=== PATIENT | male | born 1945 | race Caucasian/White ===

== ENCOUNTER → 2017-06-15 | Day surgery (SDC) | payer MEDICARE, OTHER ==
--- NOTE | 2017-06-14 15:07 | Diagnostic Imaging Report ---
PROCEDURE:CHEST 2 VIEWS TECHNIQUE:PA and lateral chest INDICATION:Preoperative evaluation for foot surgery COMPARISON:None. FINDINGS: Lungs are clear and symmetrically inflated. No pleural effusions. Normal heart size; minimally tortuous thoracic aorta. Intact skeleton. CONCLUSION: No acute abnormality. Dictated by: Alexey Morales M.D. on 06/14/2017 at 15:08 Electronically approved by: Alexey Morales M.D. on 06/14/2017 at 15:08
[2017-06-14 15:08] LABS: BASOPHILS % 0.4 % (0.0-1.0); EOSINOPHILS # (AUTO) 0.3 (0.0-0.4); EOSINOPHILS % 3.5 % (0.0-6.0); HEMATOCRIT 35.9 % (38.2-49.6); HEMOGLOBIN 12.6 g/dL (14.0-18.0); LYMPHOCYTES # (AUTO) 1.7 (1.0-3.2); LYMPHOCYTES % 23.2 % (18.0-39.1); MEAN CORPUSCULAR HGB CONC 35.1 g/dL (31-35); MEAN CORPUSCULAR VOLUME 82.5 fL (81-99); MONOCYTES # (AUTO) 0.6 (0.2-0.8); MONOCYTES % 8.6 % (4.4-11.3); NEUTROPHILS # (AUTO) 4.6 (2.1-6.9); PLATELET COUNT 223 x10e3/uL (140-360); RED BLOOD COUNT 4.35 x10e6/uL (4.3-5.7); RED CELL DISTRIBUTION WIDTH 14.8 % (11.7-14.4)
[2017-06-14 15:26] LABS: ANION GAP 11.2 mmol/L (8-16); CALCIUM 8.9 mg/dL (8.4-10.2); CREATININE, SERUM 1.22 mg/dL (0.72-1.25); POTASSIUM 4.2 mmol/L (3.5-5.1)
[~2017-06-15] MED LIST: ASPIR 8181 MG PO; ASPIRIN81 MG; BACITRACIN 50,000 UNIT VIAL ONE; BUPIVACAINE HCL 0.5% INJ 30 ML VIAL INJ ONE; CALCIUM CITRAT1 EAC3 PO; CIPRO500 MG PO; CLINDAMYCIN HC150 MG; CLOPIDOGREL75 MG PO; COQ-10100 MG PO; DEXAMETHASONE SOD PHOS INJ 4 MG/ML VIAL ONE; DEXTROSE 5% 250ML 250 ML IV ONE; EPHEDRINE SULFATE INJ 50 MG/10 ML SYR ONE; FENTANYL CITRATE/PF 100MCG/2 ML INJ ONE; LIDOCAINE HCL 2% LOCAL INJ 5 ML SDV VIAL INJ ONE; LOSARTAN POTASS25 MG PO; METFORMIN HCL500 MG PO; MIDAZOLAM HCL 2 MG/2 ML VIAL ONE; NEOSTIGMINE 1 MG/ML 10ML VIAL ONE; NOVOLOG MI100 UNIT/1 SQ; ONDANSETRON HCL INJ 2 MG/ML VIAL ONE; PROPOFOL IV EMULSION 10 MG/ML 20 ML VIAL ONE; SEVOFLURANE INHAL SOLN 250 ML PEN BTL ONE; SIMVASTATIN20 MG PO; TRIAMCINOLONE A15 G1 TOP; VANCOMYCIN 1GM/NS 250 ML 250 ML ONE; VITAMIN A SQ; VITAMIN B COMP1 EACH PO
--- OUTSIDE RECORDS SUMMARY | 2017-06-15 09:37 | XMS REPORT | Clinical Summary ---
Author Author [facility] Address Unknown Phone Unavailable Care Team Providers Care Center Mgr Name Role Phone Rafael Allen MD PCP Allergies No Known Allergies Current Medications Prescription Sig. Disp. Refills Start End Date Status Date clopidogrel (PLAVIX) 75 Take 75 mg by mouth 01/18/20 Active mg tablet daily. 16 NOVOLOG MIX 70-30 FLEXPEN INJ 45 UNITS SQ QAM AND 4 12/28/19 Active 100 unit/mL (70-30) 48 UNITS QPM 16 insulin pen metFORMIN (GLUCOPHAGE) 500 mg 2 (two) times a 01/06/20 Active 500 MG tablet day with meals. 16 simvastatin (ZOCOR) 20 MG 20 mg nightly. 11/20/19 Active tablet 16 aspirin (ECOTRIN) 81 MG Take 81 mg by mouth Active enteric coated tablet daily. glipiZIDE (GLUCOTROL) 10 Take 10 mg by mouth Active MG tablet daily. nitroglycerin (NITROSTAT) Place 0.4 mg under the Active 0.4 MG SL tablet tongue every 5 (five) minutes as needed for chest pain. 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 2016 Acute pain of left knee 02/14/2016 Encounters Date Type Specialty Care Team Description 04/02/2017 Lab Lab Sam Segal MD Essential hypertension, benign (Primary Dx); Diabetes mellitus without complication; Disease of cardiovascular system 09/16/2016 Hospital Procedural Cardiology Rip Rowe MD Coronary artery disease Encounter involving [place] heart without angina pectoris, unspecified vessel or lesion type 09/16/2016 Procedure Pass Procedural Cardiology 09/16/2016 Surgery Procedural Cardiology Rip Rowe MD Cv left heart cath w lv gram cors [60187 (CPT )] 09/08/2016 Procedure Pass Procedural Cardiology after 06/14/2016 Family History Medical History Relation Name Comments Heart disease Father Arthritis Mother Relation Name Status Comments Father Mother Social History Tobacco Use Types Packs/Day Years Used Date Never Smoker Smokeless Tobacco: Never Used Alcohol Use Drinks/Week oz/Week Comments Yes 1 Cans of 0.6 social beer Sex Assigned at Date Recorded Not on file Last Filed Vital Signs Vital Sign Reading Time Taken Blood Pressure 168/80 09/16/2016 10:00 PM CDT Pulse 69 09/16/2016 10:00 PM CDT Temperature 36.3 C (97.3 F) 09/16/2016 3:15 PM CDT Respiratory Rate 22 09/16/2016 10:00 PM CDT Oxygen Saturation 98% 09/16/2016 10:00 PM CDT Inhaled Oxygen - - Concentration Weight 119 kg (263 lb 6 oz) 09/16/2016 1:51 PM CDT Height 180.3 cm (5' 11") 09/16/2016 1:51 PM CDT Body Mass Index 36.73 09/16/2016 1:51 PM CDT Plan of Treatment Health Maintenance Due Date Last Done Comments FOOT EXAM 11/16/1955 OPHTHALMOLOGY EXAM 11/16/1955 URINE MICROALBUMIN 11/16/1955 COLONOSCOPY 11/16/1995 ZOSTER VACCINE 2005 PNEUMOCOCCAL 2010 POLYSACCHARIDE VACCINE AGE 65 AND OVER PNEUMOCOCCAL-13 2010 INFLUENZA VACCINE 10/13/2017 Procedures Procedure Name Priority Date/Time Associated Diagnosis Comments CV LEFT HEART CATH LV Routine 09/16/2016 Coronary artery disease Results for this GRAM WITH CORS 2:57 PM CDT involving [place] heart procedure are in the without angina pectoris, results section. unspecified vessel or lesion type after 06/14/2016 Results * Cv labor training manager procedure (09/16/2016 2:57 PM) Component Value Ref Range Cath EF Estimated 45 % Specimen Performing Laboratory [facility] [address] [place] [address] Narrative Patient has occluded RCA with lesions in \\lad and LM.Will watch carefully with repeat cath in one year or if symptoms develop. * ECG 12 lead (09/16/2016 2:19 PM) Component Value Ref Range Ventricular rate 63 Atrial rate 63 NH interval 172 QRSD interval 114 QT interval 400 QTC interval 409 P axis 1 21 QRS axis 1 10 T wave axis -4 EKG impression Sinus rhythm with occasional premature ventricular complexes-Inferior infarct (cited on or before 10-MAR-2012)-Abnormal ECG-In automated comparison with ECG of 20-JUL-2013 08:33,-No significant change was found- Specimen Performing Laboratory [facility] MUSE [address] [place] [phone] * Partial thromboplastin time, activated (09/16/2016 2:12 PM) Component Value Ref Range PTT 27.0 23.0 - 36.0 sec Comment: PTT therapeutic range for unfractionated heparin is 61.0-112.0 seconds which corresponds to Anti-Xa 0.3-0.7 U/ml. Specimen Performing Laboratory Blood [facility] DEPARTMENT OF PATHOLOGY AND GENOMIC MEDICINE [address] [place] [phone] * Prothrombin time with INR (09/16/2016 2:12 PM) Component Value Ref Range Prothrombin time 14.0 12.0 - 15.0 sec INR 1.1 Comment: The International Normalized Ratio (INR) is a therapeutic monitoring tool for patients who are stable on oral anticoagulant therapy. An INR of 2.0-3.0 is suggested for deep vein thrombosis/pulmonary embolism. Specimen Performing Laboratory Blood [facility] DEPARTMENT OF PATHOLOGY AND GENOMIC MEDICINE [address] [place] [address] * CBC with platelet and differential (09/16/2016 2:12 PM) Component Value Ref Range WBC 8.00 4.50 - 11.00 k/uL RBC 4.10 (L) 4.40 - 6.00 m/uL HGB 11.8 (L) 14.0 - 18.0 g/dL HCT 35.3 (L) 41.0 - 51.0 % MCV 86.1 82.0 - 100.0 fL MCH 28.8 27.0 - 34.0 pg MCHC 33.4 31.0 - 37.0 g/dL RDW - SD 44.8 37.0 - 55.0 fL MPV 9.4 8.8 - 13.2 fL Platelet count 248 150 - 400 k/uL Nucleated RBC 0.00 /100 WBC Neutrophils 63.9 39.0 - 69.0 % Lymphocytes 21.1 (L) 25.0 - 45.0 % Monocytes 10.9 (H) 0.0 - 10.0 % Eosinophils 3.4 0.0 - 5.0 % Basophils 0.3 0.0 - 1.0 % Immature granulocytes 0.4Comment: "Immature granulocytes" 0.0 - 1.0 % (promyelocytes, myelocytes, metamyelocytes) Specimen Performing Laboratory Blood [facility] DEPARTMENT OF PATHOLOGY AND GENOMIC MEDICINE [address] [place], [place] [id number] * POC glucose (09/16/2016 1:43 PM) Component Value Ref Range POC glucose 156 (H) 65 - 99 mg/dL Comment: [facility] Notified RN Meter ID: [id number] Foundry Supervisor: Anthony Lin Specimen Performing Laboratory [facility] DEPARTMENT OF PATHOLOGY AND [place] [id number] * Estimated GFR (09/16/2016 1:27 PM) Component Value Ref Range GFR Non Af Amer 66 mL/min/1.73 m2 GFR Af Amer 80 mL/min/1.73 m2 Comment: Chronic kidney disease: <60 mL/min/1.73m2 Kidney failure: <15 mL/min/1.73m2 The estimated GFR is calculated from the IDMS-traceable Modification of Diet in Renal Disease Equation. The accuracy of the calculation is poor when the creatinine is normal. Calculated values >90 mL/min/1.73m2 are not reported. This equation has not been validated in children (<18 years), women, the elderly (>70 years), or ethnic groups other than Caucasians and Americans. Specimen Performing Laboratory Plasma specimen [facility] DEPARTMENT OF PATHOLOGY AND GENOMIC MEDICINE [address] [place] [phone] * Comprehensive metabolic panel (09/16/2016 1:27 PM) Component Value Ref Range Sodium 137 135 - 148 mEq/L Potassium 4.4 3.5 - 5.0 mEq/L Chloride 100 98 - 112 mEq/L CO2 25 24 - 31 mEq/L Anion gap 12 7 - 15 mEq/L Comment: Starting from June , anion gap calculation no longer incorporates potassium. Please note the change. BUN 19 8 - 23 mg/dL Creatinine 1.1 0.7 - 1.2 mg/dL Glucose 155 (H) 65 - 99 mg/dL Calcium 9.1 8.8 - 10.2 mg/dL Protein 7.2 6.3 - 8.3 g/dL Comment: 4.6-7.0 g/dL 1 week 4.4-7.6 g/dL 7 months-1year 5.1-7.3 g/dL 1-2 years 5.6-7.5 g/dL >3 years 6.0-8.0 g/dL 18-150 6.3-8.3 g/dL Albumin 3.5 3.5 - 5.0 g/dL A/G ratio 0.9 0.7 - 3.8 Alkaline phosphatase 59 40 - 129 U/L AST 15 10 - 50 U/L ALT 16 5 - 50 U/L Total bilirubin 0.3 0.0 - 1.2 mg/dL Specimen Performing Laboratory Plasma specimen [facility] DEPARTMENT OF PATHOLOGY AND GENOMIC MEDICINE [address] [place] [phone] after 06/14/2016 Insurance Payer Benefit Subscriber ID Type Phone Address Plan / Group AETNA AETNA xxxxxxxxxx HMO HMO,POS,EP O, MC/EC MEDICARE MEDICARE xxxxxxxxxx Medicare [place], [place] PART A AND B
--- OUTSIDE RECORDS SUMMARY | 2017-06-15 09:37 | XMS REPORT ---
Author [facility] Address Unknown Phone Unavailable Care Team Providers Care Merchandise Flow Team Member Name Role Phone SHEELA VELAZQUEZ Unavailable Unavailable Problems This patient has no known problems. Allergies, Adverse Reactions, Alerts This patient has no known allergies or adverse reactions. Medications This patient has no known medications. Results Test Description Test Time Test Comments Text Results Atomic Results Result Comments CHEST 2 VIEWS [place] [address] Patient Name: CAR QUINTANA MR #: [id number] : 1945 Age/Sex: 71/M Req #: [id number] Adm Physician: Ordered by: SHEELA VELAZQUEZ DP Report #: [id number] Location: OR Room/Bed: Procedure: [id number] DX/CHEST 2 VIEWS Exam Date: 06/14/17 Exam Time : 1445 REPORT STATUS: Signed PROCEDURE: CHEST 2 VIEWS TECHNIQUE: PA and lateral chest INDICATION: Preoperative evaluation for foot surgery COMPARISON: None. FINDINGS: Lungs are clear and symmetrically inflated. No pleural effusions. Normal heart size; minimally tortuous thoracic aorta. Intact skeleton. CONCLUSION: No acute abnormality. Dictated by: Joyce Morales M.D. on 06/14/2017 at 15:08 Electronically approved by: Joyce Morales M.D. on 06/14/2017 at 15: 08 Dictated By: JOYCE MORALES MD 1508 Transcribed By: JOSH on 06/14/17 1508 COPY TO: SHEELA VELAZQUEZ DPM PICC INSERT W OR W/O PORT [place] [address] Patient Name: CAR QUINTANA MR #: [id number] : 1945 Age/Sex: 71/M Req #: [id number] Adm Physician: Ordered by: SHEELA VELAZQUEZ DPM Report #: [id number] Location: DX Room/Bed: Procedure: [id number] IR/PICC INSERT W OR W/O PORT Exam Date: 01/15/17 Exam Time: 1300 REPORT STATUS: Signed Procedure: Peripherally inserted central venous catheter placement. Indication: Need for long-term central venous access for antibiotics. Comparison: None. Discussion: The risks and benefits of the procedure were discussed with the patient. Questions were answered. An informed consent was obtained. The patient was placed supine on the angiographic table. A focused sonographic evaluation of the right upper extremity demonstrated a patent and compressible right brachial vein. The right upper extremity was prepped and draped in the usual sterile fashion. Utilizing ultrasound guidance, a 21-gauge needle was inserted into the right brachial vein. A 0.018 inch wire was advanced centrally under fluoroscopic guidance. An access sheath was placed over the wire to secure the access. The wire was advanced into the inferior vena cava for stability. A double lumen peripherally inserted central venous catheter was advanced over the wire. The catheter could not be advanced past the brachiocephalic vein. The wire was removed. The catheter tip was positioned within the right brachiocephalic vein. The ports demonstrated proper function with aspiration and flush. The lumens were flushed with sterile saline. The catheter was secured to the skin with 3-0 Ethilon suture. A sterile dressing was applied. There were no complications and the patient tolerated the procedure well. The patient was transferred to the PACU in stable unchanged condition for further monitoring. Impression: Successful placement of right upper extremity peripherally inserted central venous catheter utilizing ultrasound and fluoroscopic guidance. 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 Signed by: Dr. Steph Clifford M.D. on 01/16/2017 3:06 PM Dictated By: STEPH CLIFFORD MD 1506 Transcribed By: IRASEMA on 01/16/17 1506 COPY TO: SHEELA VELAZQUEZ DPM CHEST XRAY LINE PLACEMENT [place] [address] Patient Name: CAR QUINTANA MR #: [id number] : 1945 Age/Sex: 71/M Req #: [id number] Adm Physician: Ordered by: SHEELA VELAZQUEZ DPM Report #: [id number] Location: DX Room/Bed: Procedure: [id number] DX/CHEST XRAY LINE PLACEMENT Exam Date: 01/15/17 Exam Time: 1405 REPORT STATUS: Signed PROCEDURE: A single AP view of the chest. COMPARISON: Chest 2 views 01/06/2017. INDICATIONS: PICC LINE PLACEMENT FINDINGS: Lines/tubes: Right peripherally inserted central venous catheter with the tip coiled within the right axillary vein/subclavian vein. Lungs: The lungs are well inflated and clear. There is no evidence of pneumonia or pulmonary edema. Pleura : There is no pleural effusion or pneumothorax. Heart and mediastinum: The heart and the mediastinum are unremarkable. Bones: No acute bony abnormality. IMPRESSION: PICC positioned as above. Dictated by: Steph Clifford M.D. on 01/15/2017 at 14:32 Electronically approved by : Steph Clifford M.D. on 01/15/2017 at 14:32 Dictated By: STEPH CLIFFORD MD 143 Transcribed By: JOSH on 01/15/17 143 COPY TO: SHEELA VELAZQUEZ DPM CHEST 2 VIEWS [place] [address] Patient Name: CAR QUINTANA MR #: [id number] : 1945 Age/Sex: 71/M Req #: [id number] Adm Physician: Ordered by: HSEELA VELAZQUEZ DPM Report #: [id number] Location: OR Room/Bed: Procedure: [id number] DX/CHEST 2 VIEWS Exam Date: 01/06/17 Exam Time: 1410 REPORT STATUS: Signed PROCEDURE: Frontal and lateral views of the chest. COMPARISON: None. INDICATIONS: PREOPERATIVE CHEST XRAY FOR FOOT SURGERY FINDINGS: Lines/tubes: None. Lungs: The lungs are well inflated and clear. There is no evidence of pneumonia or pulmonary edema. Pleura: There is no pleural effusion or pneumothorax. Heart and mediastinum: The cardiac silhouette is mildly enlarged. Bones: No acute bony abnormality. Mild spondylosis of the lower thoracic spine. Mild anterior wedging of the T11 vertebral body. IMPRESSION: 1. No acute cardiopulmonary disease. Luis Angel Mejia M.D. Dictated by: Luis Angel Mejia M.D. on 01/06/2017 at 16:21 Electronically approved by: Luis Angel Mejia M.D. on 01/06/2017 at 16: 21 Dictated By: ALEXANDRIA MEJIA MD, MD 20 Transcribed By: JOSH on 01/06/171620 COPY TO: SHEELA VELAZQUEZ DPM
--- NOTE | 2017-06-15 14:52 | Operative Report ---
DATE OF PROCEDURE: June 15, 2017 CARPENTER INSPECTOR: None. PREOPERATIVE DIAGNOSIS: Ulcer, left 2nd, grade II. POSTOPERATIVE DIAGNOSES 1. Ulcer, left 2nd, grade II. 2. Proximal interphalangeal joint contracture. PROCEDURES 1. Proximal interphalangeal joint fusion, left 2nd. 2. Debridement of the ulcer to bone with closure. PATHOLOGY: Deep culture and sensitivities of the wound at end of the left 2nd. COMPLICATIONS: None. CONDITION: Stable. PROCEDURE IN DETAIL: Under mild sedation, patient was brought to the operating room and placed on the operating table in the supine position. Following IV sedation, anesthesia was obtained with general anesthetic. At this point, the foot scrubbed, prepped and draped in the usual aseptic manner. The tourniquet was inflated to 250 mmHg and the leg was lowered to the table. Attention was then directed to the left 2nd digit where an ulcer at the distal aspect of the left foot. At this point, it was noted that the contracture was all coming from the PIP joint and the extensor tendon. The extensor tendon was then tenotomized. The contracture still continued, so at this point, the PIPJ fusion was performed with an oscillating saw after an incision was made overlying the PIPJ. The incision was deepened down to the level of the tendon. The tendon was then tenotomized. The joint was prepared for arthrodesis. A K-wire was used from the proximal aspect of the DIPJ into the proximal intraphalangeal joint. There was noted to be adequate compression clinically and with the use of intraop fluoroscopy. Debridement of ulcer to bone with primary closure: Attention was then directed to the distal aspect of the left 2nd digit where utilizing sharp dissection, excisional debridement of the nonviable tissue down to and include the bone was performed. All nonviable tissue was removed. The area was then flushed with copious amount of normal sterile saline solution with copious irrigation with bacitracin. At this point, primary closure of the wound was performed. The wound was rotated in order to be able to close the digit and was closed 4-0 nylon. Clean dressing was applied consisting of Adaptic, ointment, 4 x 4's, and Kerlix to the PIPJ fusion and to the ulcer area adaptic and Betadine wet-to-dry in order to keep the bacterial load down. The 4 x 4's, Kerlix, Webril, and posterior splint was applied to the foot utilizing an Ryley bandage. The tourniquet was deflated. There was noted to be hyperemic response to all the digits. Patient tolerated the procedure and anesthesia well without complications and was transported to recovery room with vital signs stable and vascular status intact to both feet. Patient will be discharged home when she meets criteria. He was given instructions to be strictly nonweightbearing, to elevate the foot while at rest, to follow up with me in the office, and to call the office if any questions, concerns, or any problems arise. Job#: [id number] VAS
== END | disposition home or self-care (01) ==
LOC: OR 09:34
PROVIDERS: ATTEND Podiatrist Foot & Ankle Surgery
DX: L97.524 Non-pressure chronic ulcer of other part of left foot with necrosis of bone (principal); M24.575 Contracture, left foot; E11.42 Type 2 diabetes mellitus with diabetic polyneuropathy; I25.10 Atherosclerotic heart disease of native coronary artery without angina pectoris; E11.22 Type 2 diabetes mellitus with diabetic chronic kidney disease; I12.9 Hypertensive chronic kidney disease with stage 1 through stage 4 chronic kidney disease, or unspecified chronic kidney disease; N18.9 Chronic kidney disease, unspecified; Z01.810 Encounter for preprocedural cardiovascular examination; Z01.812 Encounter for preprocedural laboratory examination; Z01.818 Encounter for other preprocedural examination; Z95.5 Presence of coronary angioplasty implant and graft
CPT/HCPCS: 11044; 28899; 36415 ×2; 71046; 76000; 80048; 82948; 85025; 87071; 87075; 87186; 87205; 93005; J1100; J2001; J2250; J2405; J2710; J3370

== ENCOUNTER 2019-09-12 15:39 | Inpatient (IN) | payer MEDICARE, OTHER ==
[~2019-09-12] VITALS: Ht 177.8 cm; Wt 108.9 kg
[~2019-09-12 15:39] MED LIST changes: -BACITRACIN 50,000 UNIT VIAL ONE; -BUPIVACAINE HCL 0.5% INJ 30 ML VIAL INJ ONE; -DEXAMETHASONE SOD PHOS INJ 4 MG/ML VIAL ONE; -DEXTROSE 5% 250ML 250 ML IV ONE; -EPHEDRINE SULFATE INJ 50 MG/10 ML SYR ONE; -FENTANYL CITRATE/PF 100MCG/2 ML INJ ONE; -LIDOCAINE HCL 2% LOCAL INJ 5 ML SDV VIAL INJ ONE; -MIDAZOLAM HCL 2 MG/2 ML VIAL ONE; -NEOSTIGMINE 1 MG/ML 10ML VIAL ONE; -ONDANSETRON HCL INJ 2 MG/ML VIAL ONE; -PROPOFOL IV EMULSION 10 MG/ML 20 ML VIAL ONE; -SEVOFLURANE INHAL SOLN 250 ML PEN BTL ONE; -VANCOMYCIN 1GM/NS 250 ML 250 ML ONE
--- NOTE | 2019-09-12 16:18 | Emergency Department Note ---
History of Present Illnes History of Present Illness Chief Complaint: General Medicine Complaints History of Present Illness This is a 73 year old male with wound of left big toe of weeks duration. Sent in by dry finisher for evaluation of osteomyelitis . Historian: Patient Arrival Mode: Car Onset (how long ago): week(s) Location: left hallux Radiation: Reports extremity Severity: moderate Onset quality: gradual Duration (how long): week(s) Timing of current episode: constant Progression: worsening Context: Denies recent illness, Denies recent surgery, Denies recent immob ilization, Denies recent travel, Denies trauma/injury, Denies new medications, Denies hx of DVT/PE, Denies non-compliance w/ medications, Denies other Relieving factors: none Exacerbating factors: none Associated symptoms: Reports fever/chills Previous service: one or more referrals, re-evaluation Past Medical/Family History Physician Review I have reviewed the patient's past medical and family history. Any updates have been documented here. Past Medical History Recent Fever: No Clinical Suspicion of Infectio: No New/Unexplained Change in Ment: No Past Medical History: Hypertension, Diabetes, Hyperlipedemia Social History Smoking Cessation: Never Smoker Alcohol Use: None Any Illegal Drug Use: No Family History Family history of heart diseas: No Other Last Tetanus: UTD Review of Systems Review of Systems Constitutional: Reports fever EENTM: Reports no symptoms Cardiovascular: Reports no symptoms Respiratory: Reports no symptoms Gastrointestinal: Reports no symptoms Genitourinary: Reports no symptoms Musculoskeletal: Reports no symptoms Integumentary: Reports poor turgor, Reports other (wound) Neurological: Reports no symptoms Psychological: Reports no symptoms Endocrine: Reports no symptoms Hematological/Lymphatic: Reports no symptoms Physical Exam Related Data Allergies: Coded Allergies: No Known Allergies (Unverified , 01/11/17) Triage Vital Signs Vital Signs Date Time Temp Pulse Resp B/P (MAP) Pulse Ox O2 Delivery O2 Flow Rate FiO2 09/12/19 16:04 100.6 98 20 131/77 96 Vital signs reviewed: Yes Physical Exam CONSTITUTIONAL Constitutional: Present well-developed, Present well-nourished HENT HENT: Present normocephalic, Present atraumatic, Present oropharynx clear/moist, Present nose normal HENT L/R: Present left ext ear normal, Present right ext ear normal EYES Eyes: Reports PERRL, Reports conjunctivae normal NECK Neck: Present ROM normal PULMONARY Pulmonary: Present effort normal, Present breath sounds normal CARDIOVASCULAR Cardiovascular: Present regular rhythm, Present heart sounds normal, Present capillary refill normal, Present normal rate GASTROINTESTINAL Abdominal: Present soft, Present nontender, Present bowel sounds normal GENITOURINARY Genitourinary: Present exam deferred SKIN Skin: Present other MUSCULOSKELETAL Musculoskeletal: Present ROM normal NEUROLOGICAL Neurological: Present alert, Present oriented x 3, Present no gross motor or sensory deficits PSYCHOLOGICAL Psychological: Present mood/affect normal, Present judgement normal Results Laboratory Lab results reviewed: Yes Laboratory comments Laboratory Tests Test 09/12/19 20:13 09/12/19 17:22 09/12/19 16:07 White Blood Count 12.95 x10e3/uL (4.8-10.8) Red Blood Count 4.02 x10e6/uL (4.3-5.7) Hemoglobin 11.7 g/dL (14.0-18.0) Hematocrit 34.4 % (38.2-49.6) Mean Corpuscular Volume 85.6 fL (81-99) Mean Corpuscular Hemoglobin 29.1 pg (28-32) Mean Corpuscular Hemoglobin Concent 34.0 g/dL (31-35) Red Cell Distribution Width 13.3 % (11.7-14.4) Platelet Count 320 x10e3/uL (140-360) Neutrophils (%) (Auto) 87.6 % (38.7-80.0) Lymphocytes (%) (Auto) 5.6 % (18.0-39.1) Monocytes (%) (Auto) 5.9 % (4.4-11.3) Eosinophils (%) (Auto) 0.2 % (0.0-6.0) Basophils (%) (Auto) 0.2 % (0.0-1.0) Neutrophils # (Auto) 11.3 (2.1-6.9) Lymphocytes # (Auto) 0.7 (1.0-3.2) Monocytes # (Auto) 0.8 (0.2-0.8) Eosinophils # (Auto) 0.0 (0.0-0.4) Basophils # (Auto) 0.0 (0.0-0.1) Absolute Immature Granulocyte (auto 0.07 x10e3/uL (0-0.1) Sodium Level 124 mmol/L (136-145) Potassium Level 4.5 mmol/L (3.5-5.1) Chloride Level 94 mmol/L (98-107) Carbon Dioxide Level 20 mmol/L (22-29) Anion Gap 14.5 mmol/L (8-16) Blood Urea Nitrogen 20 mg/dL (7-26) Creatinine 1.58 mg/dL (0.72-1.25) Estimat Glomerular Filtration Rate 43 ML/MIN (60-) BUN/Creatinine Ratio 13 (6-25) Glucose Level 192 mg/dL (74-118) Calcium Level 9.2 mg/dL (8.4-10.2) Total Bilirubin 0.4 mg/dL (0.2-1.2) Aspartate Amino Transf (AST/SGOT) 19 IU/L (5-34) Alanine Aminotransferase (ALT/SGPT) 22 IU/L (0-55) Alkaline Phosphatase 88 IU/L (40-150) Total Protein 7.9 g/dL (6.5-8.1) Albumin 2.9 g/dL (3.5-5.0) Globulin 5.0 g/dL (2.3-3.5) Albumin/Globulin Ratio 0.6 (0.8-2.0) Imaging Imaging results reviewed: Yes Impressions [place] [id number] Patient Name: CAR QUINTANA MR #: [id number] : 1945 Age/Sex: 73/M Req #: [id number] Adm Physician: EDGAR FULLER MD Ordered by: LD LOMBARDI DO Report #: [id number] Location: [facility] Room/Bed: [place] [address] Procedure: [id number] DX/FOOT LEFT COMPLETE Exam Date: 09/12/19 Exam Time: 1620 REPORT STATUS: Signed EXAM: FOOT LEFT COMPLETE DATE: 09/12/2019 4:27 PM INDICATION: Infected toe COMPARISON: None FINDINGS/IMPRESSION: There is hypodensity within the soft tissues about the first digit suggestive of soft tissue gas. Additionally, there is subtle loss of cortical distinction of the underlying distal phalanx of the first digit which can be seen in the setting of osteomyelitis. Further evaluation could be performed with dedicated MRI if clinically indicated. The remaining osseous structures demonstrate no evidence for acute fracture or dislocation. Scattered degenerative changes are noted. No radiopaque foreign body is appreciated. Signed by: Dr. Bret Watkins MD on 09/12/2019 5:06 PM Dictated By: BRET WATKINS MD 05 Transcribed By: IRASEMA on 09/12/191705 COPY TO: LD LOMBARDI DO~ Assessment & Plan Medical Decision Making MDM Diff Dx : cellulitis, diabetic foot ulcer, gangrene, osteomyelitis Assessment & Plan Final Impression: (1) Diabetic foot ulcer with osteomyelitis (2) Hyponatremia (3) Renal insufficiency Depart Disposition: REQUEST WITHDRAWN FOR MSE Last Vital Signs Date Time Temp Pulse Resp B/P (MAP) Pulse Ox O2 Delivery O2 Flow Rate FiO2 09/12/19 16:04 100.6 98 20 131/77 96 Home Meds Active Scripts Doxycycline Hyclate (DOXYCYCLINE HYCLATE) 100 Mg Capsule, 100 MG PO BID, #42 Prov:SHAIAbdiMICAELA [employer] INSTALLER 09/16/19 Reported Medications Aspirin (ASPIRIN) 81 Mg Tab.chew 06/15/17 Triamcinolone Acet (TRIAMCINOLONE ACETONIDE) 15 Gm Cr, TOP DAILY 06/14/17 Insuln Asp Prt/Insulin Aspart (NOVOLOG MIX 70-30 FLEXPEN SYRN) 100 Unit/1 Ml Insuln.pen, 48 UNITS SQ HS 06/14/17 Losartan Potassium (LOSARTAN POTASSIUM) 25 Mg Tablet, 50 TAB PO HS 01/11/17 Insuln Asp Prt/Insulin Aspart (NOVOLOG MIX 70-30 FLEXPEN SYRN) 100 Unit/1 Ml Insuln.pen, 45 UNITS SQ DAILY 01/11/17 Simvastatin (SIMVASTATIN) 20 Mg Tablet, 20 MG PO 2100, EA 01/11/17 Metformin Hcl (METFORMIN HCL) 500 Mg Tablet, 500 MG PO BID, #60 TAB 01/11/17 LD LOMBARDI DO Sep 12, 2019 16:18
[2019-09-12] MEDS ORDERED: MORPHINE SULFATE 2 MG/ML SYR 1ML IV PRN (16:30)
[2019-09-12] MEDS ORDERED: ONDANSETRON HCL INJ 2MG/ML 2ML 2 MG/ML VIAL IV PRN (16:30)
[2019-09-12 16:31] LABS: BASOPHILS % 0.2 % (0.0-1.0); EOSINOPHILS % 0.2 % (0.0-6.0); HEMATOCRIT 34.4 % (38.2-49.6); HEMOGLOBIN 11.7 g/dL (14.0-18.0); LYMPHOCYTES # (AUTO) 0.7 (1.0-3.2); LYMPHOCYTES % 5.6 % (18.0-39.1); MEAN CORPUSCULAR HEMOGLOBIN 29.1 pg (28-32); MEAN CORPUSCULAR VOLUME 85.6 fL (81-99); MONOCYTES # (AUTO) 0.8 (0.2-0.8); MONOCYTES % 5.9 % (4.4-11.3); NEUTROPHILS # (AUTO) 11.3 (2.1-6.9); NEUTROPHILS % 87.6 % (38.7-80.0); PLATELET COUNT 320 x10e3/uL (140-360); RED BLOOD COUNT 4.02 x10e6/uL (4.3-5.7); RED CELL DISTRIBUTION WIDTH 13.3 % (11.7-14.4)
[2019-09-12] MEDS ORDERED: ACETAMINOPHEN 325 MG TAB PO ONE (16:45)
[2019-09-12] MEDS ORDERED: MORPHINE SULFATE INJ 4 MG/ML INJ 1ML IV PRN (16:45)
[2019-09-12 16:47] LABS: ALBUMIN 2.9 g/dL (3.5-5.0); ALBUMIN/GLOBULIN RATIO 0.6 (0.8-2.0); ANION GAP 14.5 mmol/L (8-16); CALCIUM 9.2 mg/dL (8.4-10.2); CREATININE, SERUM 1.58 mg/dL (0.72-1.25); POTASSIUM 4.5 mmol/L (3.5-5.1)
[2019-09-12] MEDS: PIPERACILLIN/TAZO 4.5 GM 100 ML IV SCH (17:00)
--- NOTE | 2019-09-12 17:09 | Diagnostic Imaging Report ---
EXAM: FOOT LEFT COMPLETE DATE: 09/12/2019 4:27 PM INDICATION: Infected toe COMPARISON: None FINDINGS/IMPRESSION: There is hypodensity within the soft tissues about the first digit suggestive of soft tissue gas. Additionally, there is subtle loss of cortical distinction of the underlying distal phalanx of the first digit which can be seen in the setting of osteomyelitis. Further evaluation could be performed with dedicated MRI if clinically indicated. The remaining osseous structures demonstrate no evidence for acute fracture or dislocation. Scattered degenerative changes are noted. No radiopaque foreign body is appreciated. Signed by: Dr. Bret Watkins MD on 09/12/2019 5:06 PM
[2019-09-12] MEDS ORDERED: DEXTROSE 50% SYRINGE 50 ML IV PRN (17:45)
--- NOTE | 2019-09-12 18:00 | NUR ---
RCD PT FROM ER BY BED PT IS ALERT AND ORIENTED PT RESTING ON BED VITALS CHECKED ,BED LOW AND LOCKED CALL LIGHT IN REACH
[2019-09-12 18:38] VITALS: BP 125/76
--- NOTE | 2019-09-12 19:00 | NUR ---
RECEIVED PATIENT IN BEDSIDE SHIFT REPORT. PATIENT RESTING IN BED AT THIS TIME. NO PAIN REPORTED. DRESSING TO L FOOT C/D/I. NO S&S OF DISTRESS NOTED. BED LOCKED IN LOWEST POSITION, SIDE RAILS UPX2, CALL LIGHT IN REACH.
--- NOTE | 2019-09-12 19:58 | NUR ---
report given to oncoming nurse, walking rounds complete.
[2019-09-12 20:00] VITALS: BP 149/70
[2019-09-12] MEDS: INSULIN REGULAR, HUMAN 100 UNIT/1 ML 3ML VIAL SQ SCH (21:00)
[2019-09-12] MEDS: SIMVASTATIN 20 MG TAB PO SCH (21:00)
[2019-09-12] MEDS: INSULIN GLARGINE 100 UNITS/ML VIAL SQ SCH (21:00)
--- NOTE | 2019-09-12 22:00 | NUR ---
OUTER COBAN DRESSING TO L FOOT HAS SLID OFF. INNER KERLIX DRESSING IN PLACE, C/D/I. REWRAPPED NEW COBAN OVER DRESSING TO SECURE IT. PLACED NON-SKID SOCK OVER FOOT TO ALLOW DRESSING TO STAY IN PLACE. NO PAIN REPORTED. BY PATIENT.
[2019-09-12] MEDS: SODIUM CHLORIDE 0.9% 1000ML 1,000 ML IV SCH (22:09)
[2019-09-12 22:17] VITALS: BP 149/70
[2019-09-13] VITALS (9 sets, daily range): BP systolic 104–159; BP diastolic 62–89
[2019-09-13] MEDS: SODIUM CHLORIDE 0.9% 1000ML 1,000 ML IV SCH ×5 (00:30→23:30)
[2019-09-13] MEDS: PIPERACILLIN/TAZO 4.5 GM 100 ML IV SCH ×5 (00:38→23:14)
[2019-09-13 05:57] LABS: BASOPHILS % 0.3 % (0.0-1.0); EOSINOPHILS # (AUTO) 0.1 (0.0-0.4); HEMOGLOBIN 10.9 g/dL (14.0-18.0); LYMPHOCYTES # (AUTO) 1.3 (1.0-3.2); LYMPHOCYTES % 14.5 % (18.0-39.1); MEAN CORPUSCULAR HEMOGLOBIN 28.3 pg (28-32); MEAN CORPUSCULAR VOLUME 85.7 fL (81-99); MONOCYTES # (AUTO) 0.9 (0.2-0.8); MONOCYTES % 9.8 % (4.4-11.3); NEUTROPHILS # (AUTO) 6.7 (2.1-6.9); NEUTROPHILS % 73.7 % (38.7-80.0); PLATELET COUNT 293 x10e3/uL (140-360); RED BLOOD COUNT 3.85 x10e6/uL (4.3-5.7); RED CELL DISTRIBUTION WIDTH 13.4 % (11.7-14.4)
[2019-09-13 06:03] LABS: ALBUMIN 2.7 g/dL (3.5-5.0); ALBUMIN/GLOBULIN RATIO 0.6 (0.8-2.0); ANION GAP 13.4 mmol/L (8-16); CALCIUM 8.7 mg/dL (8.4-10.2); CREATININE, SERUM 1.27 mg/dL (0.72-1.25); POTASSIUM 4.4 mmol/L (3.5-5.1)
--- NOTE | 2019-09-13 06:23 | NUR ---
SPOKE WITH MD CLAUSE CONCERNING CONSULT FOR OSTEOMYELITIS.
[2019-09-13] MEDS: INSULIN REGULAR, HUMAN 100 UNIT/1 ML 3ML VIAL SQ SCH ×4 (07:30→20:36)
--- NOTE | 2019-09-13 08:45 | NUR ---
Dr. Combs visited and order receved for dressing daily with aqucel ,4x4 and kerlix.
[2019-09-13] MEDS: TRIAMCINOLONE ACET 0.1% CREAM 15 GM TUBE TOP SCH (09:00)
[2019-09-13] MEDS: ASPIRIN 81 MG CHEW TAB PO SCH (09:13)
[2019-09-13] MEDS: METOPROLOL TARTRATE 25 MG TAB PO SCH ×2 (09:15→17:04)
[2019-09-13] MEDS ORDERED: VANCOMYCIN 1GM/NS 250 ML 250 ML IV ONE (11:30)
--- NOTE | 2019-09-13 12:37 | Diagnostic Imaging Report ---
MRI of the left forefoot without contrast. History: Foot pain. Osteomyelitis. Pain at the great toe. Decreased range of motion. Technique: Multiplanar multisequence MRI of the left forefoot without contrast Comparison: Radiographs 09/12/2019 Findings: Skin thickening with skin ulceration and abnormal soft tissue edema at the distal first toe. No well-formed drainable fluid collection/abscess is seen. There is abnormal bone marrow edema and cortical destruction involving the distal phalanx of the first toe consistent with osteomyelitis. No acute fracture, subluxation or avascular necrosis. Scattered degenerative change. No ligamentous or tendon tear. The visualized muscles are normal in size, signal intensity and morphology. The visualized neurovascular bundles are intact. Partially imaged suspected ganglion cyst at the dorsal aspect of the foot at the level of the second metatarsal/cuneiform bone. Impression: Skin thickening with skin ulceration and abnormal soft tissue edema at the distal first toe. No well-formed drainable fluid collection/abscess is seen. There is abnormal bone marrow edema and cortical destruction involving the distal phalanx of the first toe consistent with osteomyelitis. Signed by: Dr. Idris Valera M.D. on 09/13/2019 12:34 PM
--- NOTE | 2019-09-13 14:13 | NUR ---
The pt. called to report that he is shaking and shivering and I went in to check him and found the pt. with red face ,temp 99.4 123 hr 19 resp bp 158 11o. The pt. is receiving vancomycin at the time and it was immediately stopped. A call as placed to the for further interventions.
--- NOTE | 2019-09-13 14:30 | NUR ---
Dr. Hebert here and was notified of the pt.'s reaction to the vancomycin.
--- NOTE | 2019-09-13 14:30 | NUR ---
Recheck of the pt. reveals temp 100.2 81 hr resp 19 bp 149/73 ONCOLOGY REGISTRAR returned call and no orders received except to tell Dr. Hebert about the reaction
--- NOTE | 2019-09-13 17:50 | History and Physical ---
PRIMARY CARE PHYSICIAN: Dr. Young Allen. CHIEF COMPLAINT: Malaise and chills due to left foot ulcer. HISTORY OF PRESENT ILLNESS: This is a 73-year-old male with past medical history of hypertension, high cholesterol, diabetes type 2, and osteomyelitis of the left foot, presented to the ER with complaints of fever, chills, and malaise that has been going on for the past three weeks. He reports had trauma to his left foot, for which he was seeing Dr. Alva, hub cutter and was supposed to have MRI as outpatient, but his symptoms worsened with fever, chills, and malaise, so he presented to the ER for further evaluation. He denies any chest pain, shortness of breath, nausea, vomiting, or diarrhea. The left foot was debrided at the hub cutter's office, Dr. Gamboa and dressing is intact. Biopsy was taken at this time. He has no pain due to neuropathy. In the ER, the foot x-ray shows hypodensity within the soft tissue about the first digit suggestive of soft tissue gas, which may be osteomyelitis. PAST MEDICAL HISTORY: 1. Hypertension. 2. High cholesterol. 3. Diabetes type 2. 4. Neuropathy due to diabetes. SURGICAL HISTORY: He reports he had: 1. Middle left toe amputated. 2. Left ankle surgery. FAMILY MEDICAL HISTORY: He reports mother has rheumatoid arthritis and father has heart attack. SOCIAL HISTORY: He denies any tobacco, alcohol, or illicit drug use. ALLERGIES: HE NO KNOWN DRUG ALLERGIES. REVIEW OF SYSTEMS: Twelve-system reviewed and negative except ones reported in the HPI. PHYSICAL EXAMINATION: VITAL SIGNS: Temperature 98.3, pulse is 71, respirations 18, blood pressure 143/64, and pulse ox is 97% on room air. GENERAL: In no acute distress. HEENT: Normocephalic, atraumatic. NECK: Supple. LUNGS: Clear to auscultation. CARDIOVASCULAR: Regular rate and rhythm. GI: Soft and nontender. NEUROLOGIC: Alert, awake, and oriented x3. MUSCULOSKELETAL: Moves all extremities. SKIN: Diabetic foot ulcer PSYCH: Calm. LABORATORY DATA: WBCs 12.95, now 9.11; hemoglobin 11.7, hematocrit 34.4, and platelets 320. Sodium 124, now 130; potassium 4.4; carbon dioxide 20, BUN is 20, creatinine 1.58, glucose 192. CRP is pending. Coronavirus PCR is pending. IMAGING: Left foot x-ray shows hypodensity within the soft tissue about the first digit suggestive of soft tissue gas. There is subtle loss of cortical distinction at the underlying distal phalanx of the first digit, which can be seen in the setting of osteomyelitis. MRI recommended, no foreign object noted. IMPRESSION: 1. Sepsis due to left foot diabetic ulcer. Blood culture sent, started on IV antibiotics. X-ray noted of the left foot. ID has been consulted. 2. Left toe osteomyelitis. MRI is pending. Podiatry is on the case. The patient is agreeable to amputation. Wound Care has been consulted and antibiotics per ID. 3. Hypertension. Resume home dose of metoprolol. 4. High cholesterol. Continue on statin. 5. Diabetes type 2. Continue with sliding scale insulin and 20 units Lantus at bedtime. 6. Acute kidney injury, questionable chronic kidney disease. We will continue with IV fluids and repeat BMP. Resume medications wounds. 7. Deep vein thrombosis prophylaxis. Heparin. 8. Hyponatremia, sodium 124 upon arrival, now improved to 130, asymptomatic. We will continue with IV fluid hydration, likely due to fever. PLAN: To continue current treatments. We will await on MRI and further recommendations per Podiatry. Dictated by EDE Garduno Sergio Oates MD MY/MODL /[id number]
--- NOTE | 2019-09-13 18:57 | NUR ---
Report to the oncoming nurse.
--- NOTE | 2019-09-13 19:15 | NUR ---
patient received awake, alert, lying quietly in bed. no c/o pain noted at this time. ivf infusing without difficulty. pm assessment complete. patient instructed to call for assistance when needed.
[2019-09-13] MEDS: SIMVASTATIN 20 MG TAB PO SCH (20:36)
[2019-09-13] MEDS: INSULIN GLARGINE 100 UNITS/ML VIAL SQ SCH (20:37)
[2019-09-13] MEDS: HEPARIN SOD (PORCINE) 5,000 UNIT/ML VIAL SC SCH (21:00)
--- NOTE | 2019-09-13 23:06 | Consultation ---
DATE OF CONSULTATION: REASON FOR CONSULTATION: Osteomyelitis, diabetic foot ulcer. HISTORY OF PRESENT ILLNESS: Mr. Nunez is a 73-year-old white male, who has a history of diabetes mellitus with neuropathy, who comes in with an ulcer he had on his left big toe for some time, getting progressively worse. The patient is being admitted, the plan for him to have surgery amputation of his toe. The patient, who is currently alert and oriented, he does not have any complaints. He is currently started on Zosyn and vancomycin, but he did have reaction with vancomycin, so I was asked to see him. He had a rash and redness. PAST MEDICAL HISTORY: Diabetes mellitus, neuropathy, and hypercholesteremia. PAST SURGICAL HISTORY: He denies. ALLERGIES: NKA. SOCIAL HISTORY: There is no smoking, drug abuse, or alcohol abuse. FAMILY HISTORY: Otherwise diabetes mellitus. LABORATORY DATA: White count 12.9 and hemoglobin of 11. Sodium 130, potassium 4.4 with creatinine 1.27. MEDICATIONS: He is currently on Zosyn, insulin, and metoprolol. PHYSICAL EXAMINATION: GENERAL: He is currently alert and oriented, does not seem to be in acute distress. VITAL SIGNS: Stable, currently afebrile. HEENT: He is not icteric. NECK: Supple. CHEST: Clear. HEART: S1 and S2, no murmurs. ABDOMEN: Soft. Bowel sounds present. No tenderness. EXTREMITIES: Left big toe, there is erythema, there is edema, and there is an ulcer. IMPRESSION: 1. Osteomyelitis. 2. Chronic kidney disease. 3. Diabetes mellitus with neuropathy. Agree with amputation. We will would recommend Zosyn 2.25 q.8. Vascular workup if not done recently. Diabetes controlled. We will follow with you. MD LIAN Syed/MODL /[id number]
[2019-09-14 04:00] VITALS: BP 143/73
[2019-09-14 05:46] LABS: BASOPHILS % 0.4 % (0.0-1.0); EOSINOPHILS # (AUTO) 0.3 (0.0-0.4); HEMATOCRIT 34.1 % (38.2-49.6); LYMPHOCYTES # (AUTO) 1.8 (1.0-3.2); LYMPHOCYTES % 19.7 % (18.0-39.1); MEAN CORPUSCULAR HEMOGLOBIN 28.5 pg (28-32); MEAN CORPUSCULAR HGB CONC 32.3 g/dL (31-35); MEAN CORPUSCULAR VOLUME 88.3 fL (81-99); MONOCYTES # (AUTO) 1.1 (0.2-0.8); MONOCYTES % 11.5 % (4.4-11.3); NEUTROPHILS # (AUTO) 5.9 (2.1-6.9); NEUTROPHILS % 64.3 % (38.7-80.0); PLATELET COUNT 302 x10e3/uL (140-360); RED BLOOD COUNT 3.86 x10e6/uL (4.3-5.7); RED CELL DISTRIBUTION WIDTH 13.6 % (11.7-14.4)
[2019-09-14] MEDS: PIPERACILLIN/TAZO 4.5 GM 100 ML IV SCH ×2 (06:00→12:37)
[2019-09-14 06:04] LABS: ANION GAP 10.1 mmol/L (8-16); CALCIUM 8.7 mg/dL (8.4-10.2); CREATININE, SERUM 1.21 mg/dL (0.72-1.25); POTASSIUM 4.1 mmol/L (3.5-5.1)
[2019-09-14] MEDS: INSULIN REGULAR, HUMAN 100 UNIT/1 ML 3ML VIAL SQ SCH ×4 (07:30→20:52)
[2019-09-14 07:47] VITALS: BP 143/71
[2019-09-14] MEDS: METOPROLOL TARTRATE 25 MG TAB PO SCH ×2 (08:41→17:27)
[2019-09-14] MEDS: ASPIRIN 81 MG CHEW TAB PO SCH (08:41)
[2019-09-14] MEDS: SODIUM CHLORIDE 0.9% 1000ML 1,000 ML IV SCH (08:41)
[2019-09-14] MEDS: HEPARIN SOD (PORCINE) 5,000 UNIT/ML VIAL SC SCH (08:42)
[2019-09-14] MEDS: TRIAMCINOLONE ACET 0.1% CREAM 15 GM TUBE TOP SCH (08:42)
[2019-09-14 09:00] VITALS: BP 143/71
--- NOTE | 2019-09-14 10:45 | NUR ---
The pt. has been consented for amputation of left great toe per Dr. Combs.
[2019-09-14 12:02] VITALS: BP 117/17
--- NOTE | 2019-09-14 12:59 | Progress Note ---
DATE: CONSULTANTS: 1. Dr. Hebert with Infectious Disease. CHIEF COMPLAINT: Left foot ulcer. SUBJECTIVE: The patient is sitting up in bed with no complaints, had reactions to vancomycin yesterday and were discontinued. He denies any shortness of breath, chest pain, nausea, vomiting, fever, or chills. Awaiting for left great toe amputation for tomorrow morning. OBJECTIVE: VITAL SIGNS: Temperature 97.9, pulse is 59, respirations 18, blood pressure 143/71, and pulse ox is 100% on room air. GENERAL: No acute distress. HEENT: Normocephalic and atraumatic. NECK: Supple. CARDIOVASCULAR: Regular rate and rhythm. LUNGS: Clear to auscultation. ABDOMEN: Soft and nontender. NEUROLOGIC: Alert and oriented x3. MUSCULOSKELETAL: Moves all extremities. SKIN: Dry and intact. Left toe ulcer dressing intact. LABORATORY DATA: WBC 9.24, hemoglobin 11.0, hematocrit 34.1, and platelet 302. Sodium 133, potassium 4.1, CO2 of 24, and creatinine 1.21, estimated GFR is 59. Coronavirus PCR is pending. Blood cultures no growth so far. IMAGING: Left foot MRI showed skin thickening with skin ulceration and abnormal soft tissue edema at the distal 1st toe. No abscess. There is abnormal bone marrow edema and cortical destruction involving the distal phalanx, the 1st toe consistent with osteomyelitis. IMPRESSION: 1. Sepsis present on admission due to left foot diabetic ulcer. Blood cultures negative, so far, continue on Zosyn q.6 hours per ID. Had a reaction to vancomycin that was discontinued. 2. Left great toe osteomyelitis. MRI consistent with osteomyelitis. Continue with IV antibiotics and wound care. Amputation is scheduled for tomorrow morning per Podiatry. 3. Hypertension. Resume metoprolol. 4. High cholesterol, on statin. 5. Diabetes type 2. We will check hemoglobin A1c. Continue Lantus and sliding scale insulin. 6. Acute kidney injury. Improved with IV fluid hydration. 7. Hyponatremia. Again improved with IV fluid hydration. 8. Deep vein thrombosis prophylaxis. Heparin subcu, last dose tonight for amputation tomorrow morning. PLAN: Plan is to continue IV antibiotics, wound care, amputation tomorrow morning per Podiatry. Dictated by EDE Garduno Yiching MD LARRY Estrada/FRANSISCA /[id number]
[2019-09-14 16:42] VITALS: BP_SYST 117; BP_SYST 136; BP_DIAS 17; BP_DIAS 68
--- NOTE | 2019-09-14 18:00 | Progress Note ---
DATE: SUBJECTIVE: The patient is seen and evaluated. Available labs and notes reviewed. Advised the patient against walking with bare feet. REVIEW OF SYSTEMS: No nausea, vomiting, fever, chills, chest pain, or shortness of breath. Pain seems to be controlled. PHYSICAL EXAMINATION: VITAL SIGNS: Temperature 98, pulse is 56, respirations 18, and blood pressure 143/71. GENERAL: Alert and oriented. No acute distress, very pleasant. CV: S1 and S2. CHEST: Equal expansion. Clear to auscultation. No acute distress. ABDOMEN: Soft and nontender. No distention. HEENT: Moist. No pallor. No JVD. EXTREMITIES: Left foot 1st toe necrotic with pus drainage. MEDICATIONS: Medication list reviewed and from ID point of view, the patient is on Zosyn. MICROBIOLOGY: Blood culture negative. IMAGING: MRI of the foot, MRI reviewed, consistent with osteomyelitis. ASSESSMENT AND PLAN: Osteomyelitis. Await surgery by Podiatry tomorrow. Most likely, the patient end up with amputation. Continue with antibiotics at this point. Other medical conditions including hyperlipidemia, pain, diabetes, obesity, and debility. Further management of this patient is based on daily findings on laboratory and physical examination. Please refer to chart for more information. Dictated by Olu Harper PA-C (Al) Mark Hebert MD /MODL /[id number]
--- NOTE | 2019-09-14 19:15 | NUR ---
patient received awake, alert, lying quietly in bed. no c/o pain noted. dressing to left foot c,d,i. patient made aware of npo status after midnight for surgery tomorrow. patient verbalizes understanding of this. pm assessment complete. patient instructed to call for assistance when needed.
[2019-09-14 20:00] VITALS: BP 159/73
[2019-09-14] MEDS: INSULIN GLARGINE 100 UNITS/ML VIAL SQ SCH (20:52)
[2019-09-14] MEDS: SIMVASTATIN 20 MG TAB PO SCH (21:00)
[2019-09-14] MEDS: PIPER-TAZ 3.375 GM 50 ML IV SCH (21:08)
[2019-09-14] MEDS ORDERED: SODIUM CHLORIDE 0.9% 250ML 250 ML ONE (21:37)
[2019-09-15] VITALS (9 sets, daily range): BP systolic 135–164; BP diastolic 43–96
--- NOTE | 2019-09-15 05:28 | NUR ---
patient awake, lying quietly in bed. patient remains npo for surgery this am.
[2019-09-15] MEDS: PIPER-TAZ 3.375 GM 50 ML IV SCH ×3 (05:54→21:00)
[2019-09-15] MEDS: INSULIN REGULAR, HUMAN 100 UNIT/1 ML 3ML VIAL SQ SCH ×4 (07:30→20:58)
[2019-09-15] MEDS ORDERED: BUPIVACAINE HCL 0.5% INJ 30 ML VIAL INJ ONE (08:59)
[2019-09-15] MEDS ORDERED: BACITRACIN 50,000 UNIT VIAL ONE (08:59)
[2019-09-15] MEDS: TRIAMCINOLONE ACET 0.1% CREAM 15 GM TUBE TOP SCH (09:00)
--- NOTE | 2019-09-15 09:30 | NUR ---
PT OFF UNIT FOR PROCEDURE IN SAFE CONDITION.
--- NOTE | 2019-09-15 11:15 | NUR ---
PT IS BACK TO THE UNIT AFTER PROCEDURE. PT DENIES NEEDS AT THIS TIME.
--- NOTE | 2019-09-15 11:53 | NUR ---
MARCELINA HINOJOSA ELEMENTARY SCIENCE TEACHER AND INFORMED PT BP 136/96 HR 53.
[2019-09-15] MEDS: LOSARTAN POTASSIUM 25 MG TAB PO SCH (12:22)
[2019-09-15] MEDS: ASPIRIN 81 MG CHEW TAB PO SCH (12:22)
--- NOTE | 2019-09-15 12:24 | Progress Note ---
DATE: 09/15/2019 CONSULTANTS: 1. Dr. Hebert with Infectious Disease. 2. Dr. Combs with Podiatry. CHIEF COMPLAINT: Left foot diabetic ulcer. SUBJECTIVE: The patient is seen in the room, status post left great toe amputation this morning. He denies any chest pain, shortness of breath, nausea, vomiting, fever, chills, or pain in the left foot. Dressing is intact. OBJECTIVE: VITAL SIGNS: Temperature 98.1, pulse is 58, respirations 16, blood pressure 151/70, and pulse ox is 98% on room air. GENERAL: No acute distress. HEENT: Normocephalic and atraumatic. NECK: Supple. CARDIOVASCULAR: Regular rate and rhythm. LUNGS: Clear to auscultation. ABDOMEN: Soft and nontender. NEUROLOGIC: Alert, awake, and oriented x3. MUSCULOSKELETAL: Moves all extremities. Left great toe amputation. Dressing intact. SKIN: Dry. IMPRESSION: 1. Sepsis, present on admission due to left great toe osteomyelitis. Blood cultures negative. Continue on Zosyn q.6 hours per ID. 2. Left great osteomyelitis. Status post amputation this morning. We will continue with IV antibiotic and wound care per with Podiatry. 3. Hypertension. Resume metoprolol and clonidine p.r.n. 4. High cholesterol. On statin. 5. Diabetes type 2. Hemoglobin A1c is 6.7. Continue Lantus at bedtime and sliding scale insulin. 6. Acute kidney injury. Resolved with IV fluid hydration. 7. Hyponatremia. Resolved with IV fluid hydration. 8. Deep vein thrombosis prophylaxis. We will hold chemical anticoagulation due to recent surgery. PLAN: Continue IV antibiotics, status post amputation, further recommendation per Podiatry. Dictated by EDE Garduno Sergio Oates MD MY/MODL /[id number]
[2019-09-15] MEDS ORDERED: FENTANYL CITRATE/PF 100MCG/2 ML INJ ONE (14:17)
[2019-09-15] MEDS ORDERED: MIDAZOLAM HCL 2 MG/2 ML VIAL ONE (14:17)
--- NOTE | 2019-09-15 15:18 | NUR ---
Spoke with Dr. Combs and received home health / wound care order. CM spoke to pt at bedside. Informed him that Dr. Combs prefers [facility]. Pt is agreeable to use that company. Choice letter signed. Copy given to pt with [employer] contact information. Pt also saved phone number to his cell. CM asked him to call [employer] if he does not hear from them within 24 hrs of discharge. Also discussed IMM letter with pt. He verbalized understanding. Copy given to pt. Signed choice letter placed in front of chart. Signed IMM placed in chart. Home health referral faxed to [facility] Called and spoke to Maricruz at [facility] and notified of referral and anticipated dc for tomorrow.
--- NOTE | 2019-09-15 19:15 | NUR ---
RECEIVED REPORT FROM PREVIOUS NURSE. CALL LIGHT WITHIN REACH. PATIENT IN BED. ROUNDING PERFORMED.
--- NOTE | 2019-09-15 19:30 | NUR ---
BEDSIDE SHIFT REPORT GIVEN TO THE [employer]ANT MANAGER RN. PT DENIED FURTHER NEEDS.
[2019-09-15] MEDS ORDERED: CLONIDINE HCL 0.1 MG TAB PO PRN (20:45)
[2019-09-15] MEDS: SIMVASTATIN 20 MG TAB PO SCH (20:57)
[2019-09-15] MEDS: INSULIN GLARGINE 100 UNITS/ML VIAL SQ SCH (20:59)
[2019-09-16] VITALS: BP 174/81
[2019-09-16 04:00] VITALS: BP 142/75
[2019-09-16] MEDS: PIPER-TAZ 3.375 GM 50 ML IV SCH ×2 (05:38→13:00)
[2019-09-16 06:17] LABS: BASOPHILS % 0.4 % (0.0-1.0); EOSINOPHILS # (AUTO) 0.3 (0.0-0.4); EOSINOPHILS % 3.7 % (0.0-6.0); HEMATOCRIT 33.7 % (38.2-49.6); HEMOGLOBIN 11.2 g/dL (14.0-18.0); LYMPHOCYTES # (AUTO) 1.5 (1.0-3.2); LYMPHOCYTES % 18.1 % (18.0-39.1); MEAN CORPUSCULAR HEMOGLOBIN 28.6 pg (28-32); MEAN CORPUSCULAR HGB CONC 33.2 g/dL (31-35); MONOCYTES # (AUTO) 0.8 (0.2-0.8); MONOCYTES % 9.5 % (4.4-11.3); NEUTROPHILS # (AUTO) 5.4 (2.1-6.9); NEUTROPHILS % 67.6 % (38.7-80.0); PLATELET COUNT 341 x10e3/uL (140-360); RED BLOOD COUNT 3.92 x10e6/uL (4.3-5.7); RED CELL DISTRIBUTION WIDTH 13.2 % (11.7-14.4)
[2019-09-16 06:34] LABS: ANION GAP 13.1 mmol/L (8-16); BLOOD UREA NITROGEN 16 mg/dL (7-26); BUN/CREATININE RATIO 16 (6-25); CALCIUM 8.6 mg/dL (8.4-10.2); CARBON DIOXIDE 23 mmol/L (22-29); CHLORIDE 102 mmol/L (98-107); EST GLOMERULAR FILTRATION RATE > 60 ML/MIN (60-); GLUCOSE 140 mg/dL (74-118); POTASSIUM 4.1 mmol/L (3.5-5.1); SODIUM 134 mmol/L (136-145)
--- NOTE | 2019-09-16 07:00 | NUR ---
BEDSIDE SHIFT REPORT RECEIVED FROM THE PROCESS LABORATORY SPECIALIST RN. EDUCATED PT ABOUT FALL PRECAUTIONS. PT VERBALIZED UNDERSTANDING. CALL LIGHT WITH IN EASY REACH. INSTRUCTED PT TO USE CALL LIGHT FOR ALL THE NEEDS. BED IS LOW AND LOCKED. SIDE RAILS X2. PT DENIES NEEDS AT THIS TIME.
--- NOTE | 2019-09-16 07:08 | NUR ---
GAVE REPORT TO ONCOMING NURSE. CALL LIGHT WITHIN REACH. PATIENT IN BED. HOURLY ROUNDING PERFORMED
[2019-09-16] MEDS: INSULIN REGULAR, HUMAN 100 UNIT/1 ML 3ML VIAL SQ SCH ×2 (08:00→12:00)
[2019-09-16] MEDS: ASPIRIN 81 MG CHEW TAB PO SCH (08:24)
[2019-09-16] MEDS: LOSARTAN POTASSIUM 25 MG TAB PO SCH (08:25)
[2019-09-16 08:27] VITALS: BP 151/75
[2019-09-16 09:14] VITALS: BP 151/75
[2019-09-16] MEDS: TRIAMCINOLONE ACET 0.1% CREAM 15 GM TUBE TOP SCH (09:24)
[2019-09-16] MEDS ORDERED: CADEXOMER IODINE 30 GM TUBE TOP SCH (10:00)
--- NOTE | 2019-09-16 10:00 | NUR ---
PAGED DR. ZAPATA REGARDING S/P LEFT GREAT TOE AMPUTATION DRESSING CHANGE. DR IS OKAY TO TAKE OUT THE DRESSING, APPLY IODOSORB ON TOP OF THE WOUND AND APPLY DEY NEW DRESSING.
--- NOTE | 2019-09-16 10:17 | NUR ---
LEFT FOOT DRESSING CHNAGE COMPLETED PER THE INSTRUCTION FROM DR. ZAPATA.
[2019-09-16] MEDS ORDERED: DOXYCYCLINE HY100 MG PO (11:16)
[2019-09-16 12:22] VITALS: BP 156/73
--- NOTE | 2019-09-16 13:55 | NUR ---
PT DISCHARGED HOME SAFELY WITH FAMILY MEMBER. IV REMOVED, TIP INTACT. DRESSING APPLIED. RX GIVEN. DISCHARGE INSTRUCTIONS GIVEN AND PATIENT VERBALIZED UNDERSTANDING. PT ESCORTED VIA WHEEL CHAIR WITH THE TECH TO THE PRIVATE AUTO AT THE FRONT ENTRANCE. PT DENIED FURTHER NEEDS.
--- NOTE | 2019-09-16 20:29 | Discharge Summary ---
PCP: Dr. Young Allen FINAL DISCHARGE DIAGNOSES: 1. Sepsis present on admission due to left great toe osteomyelitis. 2. Left great toe osteomyelitis, status post amputation. 3. Hypertension. 4. High cholesterol. 5. Diabetes type 2. 6. Acute kidney injury. 7. Hyponatremia due to dehydration. CONSULTANTS: 1. Dr. Hebert with Infectious Disease. 2. Dr. Combs with Podiatry. PROCEDURES: Had left great toe amputation per Dr. Combs. HISTORY: Per HPI. HOSPITAL COURSE: This is a 73-year-old male who presented to the ER with fever, chills, leukocytosis and sepsis present on admission due to left toe infection. According to the patient, he had debridement and biopsy at his data analysis intern's office and was supposed to have an MRI done as outpatient but his symptoms worsened, so presented to the ER for further evaluation. MRI showed skin thickening with skin ulceration and abnormal soft tissue edema at the distal 1st toe consistent with osteomyelitis. Infectious Disease was consulted, was started on IV antibiotics Zosyn q. 6 hours. Blood cultures were negative, data analysis intern was consulted. He underwent amputation of that left great toe. He was monitored overnight, dressing changed this morning, and no nausea, vomiting, dressing intact. We will discharge home on p.o. doxycycline as per ID recommendations. PHYSICAL EXAMINATION: VITAL SIGNS: Temperature 98.0, pulse is 59, respirations 19, blood pressure 156/73, pulse ox is 100% on room air. GENERAL: No acute distress. HEENT: Normocephalic, atraumatic. NECK: Supple. CARDIOVASCULAR: Regular rate and rhythm. LUNGS: Clear to auscultation. ABDOMEN: Soft and nontender. NEUROLOGIC: Alert, awake, and oriented x3. MUSCULOSKELETAL: Moves all extremities, status post left great toe amputation, dressing intact. CONDITION AT DISCHARGE: Improved and stable. DISCHARGE MEDICATIONS: Please see medication reconciliation list. FOLLOWUP: Follow up with PCP and Podiatry in 1 week. TIME SPENT: Total discharge time is 32 minutes. Dictated by EDE Garduno Felicitaching Guille Oates MD MY/MODL /[id number]
--- OUTSIDE RECORDS SUMMARY | 2019-10-13 03:45 | XMS REPORT | Continuity of Care Document ---
Author Author [facility] t Organization [facility] Address [address] [place] [address] Phone Unavailable Care Team Providers Care Jewel Stringer Name Role Phone NONSTAFF PCP Unavailable Breonna FULLER Attphys Unavailable Pob1, Care Clinic Acute Attphys Unavailable SHEELA VELAZQUEZ Attphys Unavailable Breonna FULLER Admphys Unavailable Payers Payer Name Policy Type Policy Number Effective Date Expiration Date S wilian Aelisna Medicare Supplement Plan [id number] 2016 00:00 :00 [facility] Medicare A & B [id number] 2010 00:00:00 [facility] MEDICAREMEDICARE PART A AND Bxxxxxxxxxxx9-[facility]CR[facility]ENTERBo[facility] [place], [place] x[place]xx 2010 00:00:00 Al Torres AETNACONTINENTAL LIFE INS [facility]xx[facility]- PresentCommercial xxxxxxxxxx 2016 00:00:00 Al Torres Problems Condition Name Condition Details Condition Category Status Onset Date Resolution Date Last Treatment Date Treating Clinician Comments Source 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 Family History Family Member Diagnosis Comments Start Date Stop Date Source Natural father Heart disease Al Torres Natural mother Arthritis Al Chilel thodi Social History Social Habit Start Date Stop Date Quantity Comments Source Sex Assigned [facility] [place] [facility] Melissa Alcohol intake 2017-11-12 00:00:00 2017-11-12 00:00:00 Current drinker of alcohol (finding) Al Torres Alcohol Comment 2017-11-10 00:00:00 2017-11-10 00:00:00 2 X weekly Al Torres Smoking Status Start Date Stop Date Source Never smoker Al hays Medications Ordered Medication Name Filled Medication Name Start Date Stop Da te Current Medication? Ordering Clinician Indication Dosage Frequency Signature (SIG) Comments Components Source Doxycycline Hyclate Doxycycline Hyclate 2019-09-16 11:16:00 Yes 100 Twice A Day [facility] aspirin (ECOTRIN) 81 MG enteric coated tablet 2017-12-08 11:05:2 2 Yes 81mg QD Take 81 mg by mouth daily. Ana Luisa Torres nitroglycerin (NITROSTAT) 0.4 MG SL tablet 2017-12-08 11:05:[address] 0.4 mg under the tongue every 5 (five) minutes a s needed for chest pain. Al Torres triamcinolone (KENALOG) 0.1 % cream 2017-12-08 11:05:22 Yes Q.5D Apply topically 2 (two) times a day. Al crawford vitamin A 02375 UNIT capsule 2017-12-08 11:05:22 Yes 02742N QD Take 10,000 Units by mouth daily. Al souza with C#20-folic acid 1 mg capsule 2017-12-08 11:05:22 Yes 1{capsule} QD Take 1 capsule by mouth daily. Al Torres ascorbic acid, vitamin C, (vitamin C) 1000 MG tablet 2 11:05:22 Yes 1000mg QD Take 1,000 mg by mouth daily. Al Torres cholecalciferol, vitamin D3, (VITAMIN D3) 2,000 unit capsule capsule 2017-12-08 11:05:22 Yes 2000U QD Take 2,000 Units b y mouth daily. Al Torres calcium citrate-vitamin D3 (CITRACAL+D) 315-200 mg-unit per tablet 2017-12-08 11:05:22 Yes 1{tbl} QD Take 1 tablet by mouth daily. Al Torres glucosamine/chondro reyna A/C/Mn (GLUCOSAMINE-CHONDROITIN COMPL X ORAL) 2017-12-08 11:05:22 Yes 1500U QD Take 1,500 Units by mouth naomi carrasquillo. Al Torres losartan (COZAAR) 100 MG tablet 2017-12-08 11:05:22 Yes 100mg QD Take 100 mg by mouth daily. Al Torres metFORMIN (GLUCOPHAGE) 500 MG tablet 2016-01-06 00:00:00 Ye s 500mg Q.5D 500 mg 2 (two) times a day with meals. Al Torres NOVOLOG MIX 70-30 FLEXPEN 100 unit/mL (70-30) insulin pen 2015-12-28 00:00:00 Yes INJ 45 UNITS SQ QAM AND 48 UNITS QPM Al Torres simvastatin (ZOCOR) 20 MG tablet 2015-11-20 00:00:00 Yes 20mg QD 20 mg nightly. Al Torres Aspirin Aspirin Yes [facility] Insuln Asp Prt/Insulin Aspart (Novolog M ix 70-30 Flexpen Syrn) 100 Unit/1 Ml INSULN.PEN Insuln Asp Prt/Insulin Aspart (Novolog M ix 70-30 Flexpen Syrn) 100 Unit/1 Ml INSULN.PEN Yes 45 Daily [facility] Insuln Asp Prt/Insulin Aspart (Novolog M ix 70-30 Flexpen Syrn) 100 Unit/1 Ml INSULN.PEN Insuln Asp Prt/Insulin Aspart (Novolog M ix 70-30 Flexpen Syrn) 100 Unit/1 Ml INSULN.PEN Yes 48 Bedtime [facility] Losartan Potassium Losartan Potassium Yes 50 Be dtime [facility] Metformin Hcl Metformin Hcl Yes 500 Twice A Day [facility] Simvastatin Simvastatin Yes 20 Today At 9:00PM [facility] Triamcinolone Acet (Triamcinolone Acetonide) 15 Gm CR Triamcinolone Acet (Triamcinolone Acetonide) 15 Gm CR Yes Naomi neida [facility] Ciprofloxacin Hcl (Cipro) 500 Mg TABLET Ciprofloxacin Hcl (C ipro) 500 Mg TABLET 2019-09-16 00:00:00 No 500 Every 12 Hours [facility] Clindamycin Hcl Clindamycin Hcl 2019-09-16 00:00:00 No 300 Four Times Daily [facility] Aspirin (Aspir 81) 81 Mg TABLET. Aspirin (Aspir 81) 81 Mg ÁNGEL FELTON 2017-06-14 00:00:00 No 81 Daily [facility] Calcium Citrate/Vitamin D3 (Calcium Citrate - Vit D Ca plet) 1 Each TABLET Calcium Citrate/Vitamin D3 (Calcium Citrate - Vit D Caplet) 1 Each TABLET 2017-06-14 00:00:00 No 1 Daily [facility] Clopidogrel Bisulfate (Clopidogrel) 75 Mg TABLET Clopi dogrel Bisulfate (Clopidogrel) 75 Mg TABLET 2017-06-14 00:00:00 No 75 Daily [facility] Ubidecarenone (Coq-10) 100 Mg CAPSULE Ubidecarenone (Coq-10) 100 Mg CAPSULE 2017-06-14 00:00:00 No 200 Daily [facility] Vitamin A Vitamin A 2017-06-14 00:00:00 No 1000 Daily [facility] Vitamin B Complex Vitamin B Complex 2017-06-14 00:00:00 No 1 Daily [facility] Vital Signs Vital Name Observation Time Observation Value Comments Source Body Temperature 2019-09-16 12:22:00 98.0 [degF] [facility] BMI (Body Mass Index) 2019-09-16 00:32:00 34.4 kg/m2 [facility] Weight 2019-09-12 16:04:00 240 [lb_av] [facility] Procedures Procedure Date / Time Performed Performing Clinician Ryan e MRI non-joint region of extremity lower wo contrast 2019-09-13 0 0:00:00 [facility] Plan of Care Planned Activity Planned Date Details Comments Source Future Scheduled Test 2019-10-14 00:00:00 INFLUENZA VACCINE [code = INFLUENZA VACCINE] Al Torres Future Scheduled Test 2014-07-08 00:00:00 SHINGLES VACCINES (#2) [code = SHINGLES VACCINES (#2)] [facility] Scheduled Test 2010 00:00:00 65+ PNEUMOCOCCAL V ACCINE (2 of 2 - PPSV23) [code = 65+ PNEUMOCOCCAL VACCINE (2 of 2 - PPSV23)] [facility] Scheduled Test 1995-11-16 00:00:00 COLONOSCOPY SCREEN ING [code = COLONOSCOPY SCREENING] [facility] Instructions Diabetes and Diet [facility] Instructions Hypertension [facility] Instructions Wound Care (General) [facility] Encounters Start Date/Time End Date/Time Encounter Type Admission Type Attendi [facility] Care Department Encounter ID Source 2019-09-12 17:07:00 2019-09-12 17:07:00 Admitted Inpatient 1 EDGAR FULLER [facility] [id number] [facility] 2019-09-07 13:46:24 2019-09-07 14:06:24 Urgent Care Pob1, Acute Care Clinic [facility] Professional [facility] Building [facility] [id number] Results Test Description Test Time Test Comments Results Result Comments Source Capillary blood glucose measurement by glucometer (mas s/volume) 2019-09-16 12:03:00 Test Item Bedside Glucose (test code = 35073-9) 150 70-120 Meter ID: [id number] Health PlainviewBlood leukocytes automated count (number/volume)2019-09-16 05:40:00* Test Item Value Reference Range Interpretation Comments White Blood Count (test code = 6690-2) 8.03 4.8-10.8 [facility] erythrocytes automated count (number/volume)2019-09-16 05:40:00* Test Item Value Reference Range Interpretation Comments Red Blood Count (test code = 789-8) 3.92 4.3-5.7 [facility] hemoglobin measurement (moles/volume)2019-09-16 05:40:00* Test Item Value Reference Range Interpretation Comments Hemoglobin (test code = 58714-3) 11.2 14.0-18.0 [facility] HospitalAutomated blood hematocrit (volume fraction)2019-09-16 05:40:00* Test Item Value Reference Range Interpretation Comments Hematocrit (test code = 4544-3) 33.7 38.2-49.6 [facility] HospitalAutomated erythrocyte mean corpuscular gzyhhv7008-72-24 05:40:00* Test Item Value Reference Range Interpretation Comments Mean Corpuscular Volume (test code = 787-2) 86.0 81-99 [facility] HospitalAutomated erythrocyte mean corpuscular hemoglobin (mass per erythrocyte)2019-09-16 05:40:00* Test Item Value Reference Range Interpretation Comments Mean Corpuscular Hemoglobin (test code = 785-6) 28.6 28-32 [facility] HospitalAutc[facility] erythrocyte mean corpuscular hemoglobin concentration measurement (mass/volume)2019-09-16 05:40:00* Test Item Value Reference Range Interpretation Comments Mean Corpuscular Hemoglobin Concent (test code = 786-4) 33.2 31-35 [facility] HospitalRDW LkeCu-Ocq7979-40-04 05:40:00* Test Item Value Reference Range Interpretation Comments Red Cell Distribution Width (test code = 50460-3) 13.2 11.7 -14.4 [facility] HospitalAutat[facility] blood platelet count (count/volume)2019-09-16 05:40:00* Test Item Value Reference Range Interpretation Comments Platelet Count (test code = 777-3) 341 140-360 [facility] HospitalAutomated blood segmented neutrophil count as percentage of total flgnhhfavw1868-30-64 05:40:00* Test Item Value Reference Range Interpretation Comments Neutrophils (%) (Auto) (test code = 54853-8) 67.6 38.7-80.0 [facility] HospitalAutomated blood lymphocyte count as percentage ot total hmrbcsloxg8844-49-78 05:40:00* Test Item Value Reference Range Interpretation Comments Lymphocytes (%) (Auto) (test code = 736-9) 18.1 18.0-39.1 [facility] HospitalAutomated blood monocyte count as percentage of total gwjuvskxll9770-37-59 05:40:00* Test Item Value Reference Range Interpretation Comments Monocytes (%) (Auto) (test code = 5905-5) 9.5 4.4-11.3 [facility] HospitalAutomated blood eosinophil count as percentage of total ibgujzgldd2742-45-83 05:40:00* Test Item Value Reference Range Interpretation Comments Eosinophils (%) (Auto) (test code = 713-8) 3.7 0.0-6.0 [facility] HospitalAutomated blood basophil count as percentage of total vtrxkmjohg6637-24-51 05:40:00* Test Item Value Reference Range Interpretation Comments Basophils (%) (Auto) (test code = 706-2) 0.4 0.0-1.0 [facility] HospitalFluoroscopic procedure less than one hour txajbmnt6460-88-31 05:40:00* Test Item Value Reference Range Interpretation Comments IM GRANULOCYTES % (test code = IM GRANULOCYTES %) 0.7 0.0- 1.0 [facility] HospitalAutomated blood neutrophil count 2019-09-16 05:40:00* Test Item Value Reference Range Interpretation Comments Neutrophils # (Auto) (test code = 751-8) 5.4 2.1-6.9 [facility] HospitalBlood lymphocytes count (number/volume) 2019-09-16 05:40:00* Test Item Value Reference Range Interpretation Comments Lymphocytes # (Auto) (test code = 42097-5) 1.5 1.0-3.2 [facility] HospitalBlood monocytes automated count (number/volume)2019-09-16 05:40:00* Test Item Value Reference Range Interpretation Comments Monocytes # (Auto) (test code = 742-7) 0.8 0.2-0.8 [facility] HospitalAutomated blood eosinophil count 2019-09-16 05:40:00* Test Item Value Reference Range Interpretation Comments Eosinophils # (Auto) (test code = 711-2) 0.3 0.0-0.4 [facility] HospitalAutomated blood basophil count (count/volume)2019-09-16 05:40:00* Test Item Value Reference Range Interpretation Comments Basophils # (Auto) (test code = 704-7) 0.0 0.0-0.1 [facility] HospitalFluoroscopic procedure less than one hour mkvgcwqm4607-29-31 05:40:00* Test Item Value Reference Range Interpretation Comments Absolute Immature Granulocyte (auto (ramo t code = Absolute Immature Granulocyte (auto) 0.06 0-0.1 [facility] plasma sodium measurement (moles/volume)2019-09-16 05:40:00* Test Item Value Reference Range Interpretation Comments Sodium Level (test code = 2951-2) 134 136-145 [facility] Kingwooderum or plasma potassium measurement (moles/volume)2019-09-16 05:40:00* Test Item Value Reference Range Interpretation Comments Potassium Level (test code = 2823-3) 4.1 3.5-5.1 [facility]wooderum or plasma chloride measurement (moles/volume)2019-09-16 05:40:00* Test Item Value Reference Range Interpretation Comments Chloride Level (test code = 2075-0) 102 98-107 [facility] Kingwooderum or plasma carbon dioxide, total measurement (moles/volume)2019-09-16 05:40:00* Test Item Value Reference Range Interpretation Comments Carbon Dioxide Level (test code = 2028-9) 23 22-29 [facility]wooderum or plasma anion xnn3360-96-55 05:40:00* Test Item Value Reference Range Interpretation Comments Anion Gap (test code = 70977-6) 13.1 8-16 [facility]wooderum or plasma urea nitrogen measurement (mass/volume)2019-09-16 05:40:00* Test Item Value Reference Range Interpretation Comments Blood Urea Nitrogen (test code = 3094-0) 16 7-26 [facility]wooderum or plasma creatinine measurement (mass/volume)2019-09-16 05:40:00* Test Item Value Reference Range Interpretation Comments Creatinine (test code = 2160-0) 1.00 0.72-1.25 [facility]wooderum or plasma urea nitrogen/creatinine mass tlacu6941-32-83 05:40:00* Test Item Value Reference Range Interpretation Comments BUN/Creatinine Ratio (test code = 3097-3) 16 6-25 [facility] HospitalEstimated glomerular filtration rate (GFR) mbxjyfzczjkrh4274-94-96 05:40:00* Test Item Value Reference Range Interpretation Comments Estimat Glomerular Filtration Rate (test code = 697853979) > 60 >60 Ranges were taken from the National Kidney Disease Education Program and the Itff[employer] unc healthal [employer] Foundation literature.Reference ranges:60 or greater: Lwhogw50-55 ( for 3 consecutive months): Chronic kidney disease 15 or less: Kidney failureMemorial Hermann Sugar Land HospitalGlucose ageiulhwbpu6051-14-65 05:40:00* Test Item Value Reference Range Interpretation Comments Glucose Level (test code = BDO7754) 140 74-118 [facility]wooderum or plasma calcium measurement (mass/volume)2019-09-16 05:40:00* Test Item Value Reference Range Interpretation Comments Calcium Level (test code = 93982-9) 8.6 8.4-10.2 [facility] HospitalFluoroscopic procedure less than one hour melzrbhi2255-74-93 05:30:00* Test Item Value Reference Range Interpretation Comments Hemoglobin A1c Percent (test code = Hemoglobin A1c Percent) 6.7 4.0-7.0 [facility] HospitalMRI FOOT LEFT FG2142-30-02 12:29:00 [facility] [address] [place] [address] Patient Name: CAR QUINTANA MR #: [id number] : 1945 Age/Sex: 73/M Req #: [id number] Adm Physician: EDGAR FULLER MD Ordered by: MICAELA MARIEE SHEET WRITER Report #: [id number] Location: MED/SURG2 Room[facility]: [facility] Procedure: [id number] MRI/MRI FOOT LE FT WO Exam Date: Exam Time: REPORT STATUS: Signed MRI of the left forefoot with out contrast. History: Foot pain. Osteomyelitis. Pain at the great toe. Dec reased range of motion. Technique: Multiplanar multisequence MRI of the l eft forefoot without contrast Comparison: Radiographs 09/12/2019 Find ings: Skin thickening with skin ulceration and abnormal soft tissue edema at the distal first toe. No well-formed drainable fluid collection/abscess is see n. There is abnormal bone marrow edema and cortical destruction involving the distal phalanx of the first toe consistent with osteomyelitis. No acute f racture, subluxation or avascular necrosis. Scattered degenerative change. No ligamentous or tendon tear. The visualized muscles are normal in size, signal intensity and morphology. The visualized neurovascular bundles are intact. Partially imaged suspected ganglion cyst at the dorsal aspect of th e foot at the level of the second metatarsal/cuneiform bone. Impression: Skin thickening with skin ulceration and abnormal soft tissue edema at the d istal first toe. No well-formed drainable fluid collection/abscess is seen. Th ere is abnormal bone marrow edema and cortical destruction involving the dista l phalanx of the first toe consistent with osteomyelitis. Signed by: Dr. Kirby Valera M.D. on 09/13/2019 12:34 PM Dictated By: KIRBY VALERA MD, MD 1234 Transcribed By: IRASEMA on 09/13/19 1234 COPY TO: MICAELA MARIEE NP Serum or plasma total bilirubin measurement (mass/volume)2019-09-13 05:05:00* Test Item Value Reference Range Interpretation Comments Total Bilirubin (test code = 1975-2) 0.4 0.2-1.2 [facility] HospitalFluoroscopic procedure less than one hour jsrshyxy7230-48-24 05:05:00* Test Item Value Reference Range Interpretation Comments Aspartate Amino Transf (AST/SGOT) (test code = Aspartate Amino Transf (AST/SGOT)) 18 5-34 [facility] Kingwooderum or plasma alanine aminotransferase measurement (enzymatic activity/volume)2019-09-13 05:05:00* Test Item Value Reference Range Interpretation Comments Alanine Aminotransferase (ALT/SGPT) (test code = 1742-6) 20 0-55 [facility] Kingwooderum or plasma protein measurement (mass/volume)2019-09-13 05:05:00* Test Item Value Reference Range Interpretation Comments Total Protein (test code = 2885-2) 7.3 6.5-8.1 [facility]wooderum or plasma albumin measurement (mass/volume)2019-09-13 05:05:00* Test Item Value Reference Range Interpretation Comments Albumin (test code = 1751-7) 2.7 3.5-5.0 [facility] HospitalPlasma globulin measurement (mass/volume) 2019-09-13 05:05:00* Test Item Value Reference Range Interpretation Comments Globulin (test code = 78211-4) 4.6 2.3-3.5 [facility]wooderum or plasma albumin/globulin mass evwno0008-00-06 05:05:00* Test Item Value Reference Range Interpretation Comments Albumin/Globulin Ratio (test code = 1759-0) 0.6 0.8-2.0 [facility]wooderum or plasma alkaline phosphatase measurement (enzymatic activity/volume)2019-09-13 05:05:00* Test Item Value Reference Range Interpretation Comments Alkaline Phosphatase (test code = 6768-6) 78 40-150 [facility]wooderum or plasma C reactive protein measurement (mass/volume)2019-09-12 20:13:00* Test Item Value Reference Range Interpretation Comments C-Reactive Protein (test code = 1988-5) 72 0-10 Performed at: - Lab[address] [id number] Director: Hung Massey MD, Phone: [phone] Hermann Sugar [facility] HospitalBlood apwqmvp4064-47-74 20:13:00* Test Item Value Reference Range Interpretation Comments Blood Culture (test code = 30013413) NO GROWTH AFTER 72 HOURS [facility] HospitalFOOT LEFT NQFRZMZH3000-64-03 17:00:00 [place] [address] Patient Name: CAR QUINTANA MR #: [id number] : 1945 Age/Sex: 73/M Req #: [id number] Adm Physician: EDGAR FULLER MD Ordered by: LD LOMBARDI DO Report #: [id number] Location: [facility] Room/Bed: [place] [address] Procedure: [id number] DX/FOOT LEFT COMP LETE Exam Date: 09/12/19 Exam Time: 1620 REPORT STATUS: Signed EXAM: FOOT LEFT COMP LETE DATE: 09/12/2019 4:27 PM INDICATION: Infected toe COMPARI SON: None FINDINGS/IMPRESSION: There is hypodensity within the soft ti ssues about the first digit suggestive of soft tissue gas. Additionally, there is subtle loss of cortical distinction of the underlying distal phalanx of the first digit which can be seen in the setting of osteomyelitis. Further evalu ation could be performed with dedicated MRI if clinically indicated. The remaining osseous structures demonstrate no evidence for acute fracture or dis location. Scattered degenerative changes are noted. No radiopaque foreign body is appreciated. Signed by: Dr. Bret Watkins MD on 09/12/2019 5:06 PM Dictated By: BRET WATKINS MD 05 COPY TO: VILMA LOMBARDI DO CHEST 2 VIEWS [place] [address] Patient Name: CAR QUINTANA MR #: [id number] : 1945 Age/Sex: 71/M Req #: [id number] Adm Physician: Ordered by: SHEELA VELAZQUEZ DPM Report #: [id number] Location: OR Room/Bed: Procedure: DX/CHEST 2 VIEWS Exam Da te: 06/14/17 Exam Time: 1445 REPORT STATUS: Sig sung PROCEDURE: CHEST 2 VIEWS TECHNIQUE: PA and lateral chest INDICATI ON: Preoperative evaluation for foot surgery COMPARISON: None. FINDI NGS: Lungs are clear and symmetrically inflated. No pleural effusions. Norm al heart size; minimally tortuous thoracic aorta. Intact skeleton. CON CLUSION: No acute abnormality. Dictated by: Joyce Morales M.D. on 06/14/2017 at 15:08 Electronically approved by: Joyce lopez M.D. on 06/14/2017 at 15:08 Dictated By: JOYCE MORALES MD 1508 Transcribed By: Eric MCDONNELL on 06/14/17 1508 COPY TO: SHEELA VELAZQUEZ DPM PICC INSERT W OR W/O [place] [address] Patient Name: CAR QUINTANA MR #: [id number] : 1945 Age/Sex: 71/M Req #: [id number] Adm Physician: Ordered by: SHEELA VELAZQUEZ DPM Report #: [id number] Location: DX Room/Bed: Procedure: [id number] IR/PICC INSERT W OR W/O POR T Exam Date: 01/15/17 Exam Time: 1300 REPORT S TATUS: Signed Procedure: Peripherally inserted central venous catheter placem ent. Indication: Need for long-term central venous access for antibiotics . Comparison: None. Discussion: The risks and benefits of the procedu re were discussed with the patient. Questions were answered. An informed con sent was obtained. The patient was placed supine on the angiographic table. A focused sonographic evaluation of the right upper extremity demonstrated a p atent and compressible right brachial vein. The right upper extremity w as prepped and draped in the usual sterile fashion. Utilizing ultrasound guid ance, a 21-gauge needle was inserted into the right brachial vein. A 0.018 in ch wire was advanced centrally under fluoroscopic guidance. An access sheath was placed over the wire to secure the access. The wire was advanced into the inferior vena cava for stability. A double lumen peripherally inserted ce ntral venous catheter was advanced over the wire. The catheter could not be a dvanced past the brachiocephalic vein. The wire was removed. The catheter tip was positioned within the right brachiocephalic vein. The ports demonstrated proper function with aspiration and flush. The lumens were flushed with ster ile saline. The catheter was secured to the skin with 3-0 Ethilon suture. A sterile dressing was applied. There were no complications and the patient t olerated the procedure well. The patient was transferred to the PACU in stabl e unchanged condition for further monitoring. Impression: Successful pl acement of right upper extremity peripherally inserted central venous catheter utilizing ultrasound and fluoroscopic guidance. 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 Si gned by: Dr. Steph Clifford M.D. on 01/16/2017 3:06 PM Dictated By: STEPH AGUILERA MD 1506 Transcribed B y: IRASEMA on 01/16/17 1506 COPY TO: SHEELA VELAZQUEZ DPM CHEST XRAY LINE PLACEMENT [place] [address] Patient Name: CAR QUINTANA MR #: [id number] : 1945 Age/Sex: 71/M Req #: [id number] Adm Physician: Ordered by: SHEELA VELAZQUEZ DPM Report #: [id number] Location: DX Room/Bed: Procedure: [id number] DX/CHEST XRAY LINE PLACEMEN T Exam Date: 01/15/17 Exam Time: 1405 REPORT S TATUS: Signed PROCEDURE: A single AP view of the chest. COMPARISON: C hest 2 views 01/06/2017. INDICATIONS: PICC LINE PLACEMENT FIND INGS: Lines/tubes: Right peripherally inserted central venous catheter with the tip coiled within the right axillary vein/subclavian vein. Lungs: The lungs are well inflated and clear. There is no evidence of pneumonia or pul monary edema. Pleura: There is no pleural effusion or pneumothorax. Heart and mediastinum: The heart and the mediastinum are unremarkable. B ones: No acute bony abnormality. IMPRESSION: PICC positioned as ab ove. Dictated by: Steph Clifford M.D. on 01/15/2017 at 14:32 Electro nically approved by: Steph Clifford M.D. on 01/15/2017 at 14:32 Dictated By: STEPH CLIFFORD MD 1432 COPY TO: SHEELA VELAZQUEZ DPM CHEST 2 VIEWS [place] [id number] [place] [address] Patient Name: CAR QUINTANA MR #: [id number] : 1945 Age/Sex: 71/M Req #: [id number] Adm Physician: Ordered by: SHEELA VELAZQUEZ DPM Report #: [id number] Location: OR Room/Bed: Procedure: [id number] DX/CHEST 2 VIEWS Exam Date : 01/06/17 Exam Time: 1410 REPORT STATUS: Citlaly d PROCEDURE: Frontal and lateral views of the chest. COMPARISON: None . INDICATIONS: PREOPERATIVE CHEST XRAY FOR FOOT SURGERY FINDIN GS: Lines/tubes: None. Lungs: The lungs are well inflated and clear. T here is no evidence of pneumonia or pulmonary edema. Pleura: There is no pleural effusion or pneumothorax. Heart and mediastinum: The cardiac s ilhouette is mildly enlarged. Bones: No acute bony abnormality. Mild spon dylosis of the lower thoracic spine. Mild anterior wedging of the T11 vertebr al body. IMPRESSION: 1. No acute cardiopulmonary disease. Luis Angel Mejia M.D. Dictated by: Luis Angel Mejia M.D. on at 16:21 Electronically approved by: Luis Angel Mejia M.D. on 01/06/2017 at 16:21 Dictated By: ALEXANDRIA MEJIA MD, MD Elec tronically Signed By: ALEXANDRIA MEJIA MD, MD on 01/06/171620 Transcribed By: MAURICE SCHAEFFER on 01/06/171620 COPY TO: SHEELA VELAZQUEZ DPM
--- OUTSIDE RECORDS SUMMARY | 2019-10-13 03:45 | XMS REPORT | Clinical Summary ---
Author Author [facility] Address Unknown Phone Unavailable Care Team Providers Care Health Education Director Name Role Phone Young Allen MD PCP Allergies No Known Allergies Medications End Date Status Medication Sig Dispensed Refills Start Date Active NOVOLOG MIX 70-30 FLEXPEN INJ 45 UNITS 4 12/13 100 unit/mL (70-30) SQ QAM AND 48 6 insulin pen UNITS QPM Active metFORMIN (GLUCOPHAGE) 500 mg 2 0 01/05/ 01 500 MG tablet (two) times a 6 day with meals. Active simvastatin (ZOCOR) 20 MG 20 mg 0 tablet nightly. 6 Active aspirin (ECOTRIN) 81 MG Take 81 mg by 0 enteric coated tablet mouth daily. Active nitroglycerin (NITROSTAT) Place 0.4 mg 0 0.4 MG SL tablet under the tongue every 5 (five) minutes as needed for chest pain. Active triamcinolone (KENALOG) Apply 0 0.1 % cream topically 2 (two) times a day. Active vitamin A 18897 UNIT Take 10,000 0 capsule Units by mouth daily. Active B complex with C#20-folic Take 1 0 acid 1 mg capsule capsule by mouth daily. Active ascorbic acid, vitamin C, Take 1,000 mg 0 (vitamin C) 1000 MG by mouth tablet daily. Active cholecalciferol, vitamin Take 2,000 0 D3, (VITAMIN D3) 2,000 Units by unit capsule capsule mouth daily. Active calcium citrate-vitamin Take 1 tablet 0 D3 (CITRACAL+D) 315-200 by mouth mg-unit per tablet daily. Active glucosamine/chondro reyna Take 1,500 0 A/C/Mn Units by (GLUCOSAMINE-CHONDROITIN mouth daily. COMPLX ORAL) Active losartan (COZAAR) 100 MG Take 100 mg 0 tablet by mouth daily. 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 09/16/2016 Acute pain of left knee 02/14/2016 Encounters Care Team Description Date Type Specialty 09/06/2019 Travel after 09/11/2018 Family History Medical History Relation Name Comments Heart disease Father Arthritis Mother Relation Name Status Comments Father Mother Social History Date Tobacco Use Types Packs/Day Years Used Never Smoker Smokeless Tobacco: Never Used Drinks/Week oz/Week Comments Alcohol Use 1 Cans of beer 1.0 2 X weekly Yes Sex Assigned at Date Recorded Not on file Industry Job Start Date Occupation Not on file Not on file Not on file Travel End Travel History Travel Start No recent travel history available. Last Filed Vital Signs Not on file Plan of Treatment Health Maintenance Due Date Last Done Comments COLONOSCOPY SCREENING 11/16/1995 65+ PNEUMOCOCCAL VACCINE 2010 04/11/2014 (2 of 2 - PPSV23) SHINGLES VACCINES (#2) 07/08/2014 05/10/2014 INFLUENZA VACCINE 10/14/2019 02/13/2016 Results Not on fileafter 09/11/2018 Insurance Type Payer Benefit Subscriber ID Effective Phone Address Plan / Dates Group Medicare MEDICARE MEDICARE xxxxxxxxxxx 2010-P [place], PART [place] AND resent [place] B [employer] [place] xxxxxxxxxx 2016-P [place] [id number] Advance Directives For more information, please contact: [phone] 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
--- OUTSIDE RECORDS SUMMARY | 2019-10-13 03:45 | XMS REPORT | Summary of Care ---
Author Author [facility] - Health Organization [facility] - Health Address Unknown Phone Unavailable Care Team Providers Care Product Marketing Engineer Name Role Phone Pcp, Patient Does Not Have A PCP [phone] Reason for Visit * Reason Comments Chills All symptoms started Tuesda y night. Fever Body Aches Headache Encounter Details Care Team Description Date Type Department Afia Montero PA [address] [place] [address] [place] [id number] Pob1, Acute Care Clinic Viral illness (Primary Dx) 09/07/[address] [phone] Allergies No Known Allergiesdocumented as of this encounter (statuses as of 09/07/2019) Medications End Date Status Medication Sig Dispensed Refills Start Date Active amLODIPine 5 mg tablet 0 0 Active aspirin 81 mg EC tablet Take 81 mg by 0 mouth. Active vitamin C with [place] hips Take 1,000 mg 0 1,000 mg tablet by mouth. Active b glktbnk-X-howmz acid 1 Take 1 0 mg capsule capsule by mouth. Active Calcium Citrate-Vitamin Take 1 tablet 0 D3 315-200 mg-unit Tab by mouth. Active Insulin Asp Prt-Insulin INJ 45 UNITS 0 Aspart (NOVOLOG MIX SQ QAM AND 48 6 70-30) 100 unit/mL UNITS QPM (70-30) injection Active losartan potassium 0 (LOSARTAN ORAL) Active metFORMIN 500 mg tablet 0 0 Active nitroglycerin 0.[address] 0.4 mg 0 sublingual tablet under the tongue. Active simvastatin 20 mg tablet 20 mg. 0 11/19 6 Active vitamin a 10,000 unit Take 10,000 0 capsule Units by mouth. Active triamcinolone acetonide Apply to 0 0.1 % cream area(s). documented as of this encounter (statuses as of 09/07/2019) Active Problems No known active problemsdocumented as of this encounter (statuses as of 09/07/2019) Social History Date Tobacco Use Types Packs/Day Years Used Never Smoker Smokeless Tobacco: Never Used Sex Assigned at Date Recorded Not on file Industry Job Start Date Occupation Not on file Not on file Not on file Travel End Travel History Travel Start No recent travel history available. Date Recorded COVID-19 Exposure Response 09/07/2019 1:56 PM CDT In the last month, have you been in contact with No / Unsure someone who was confirmed or suspected to have Coronavirus / COVID-19? documented as of this encounter Last Filed Vital Signs Reading Time Taken Comments Vital Sign 121/79 09/07/2019 2:03 PM CDT Blood Pressure 86 09/07/2019 2:00 PM CDT Pulse 37.4 C (99.4 F) 09/07/2019 2:00 PM CDT Temperature 22 09/07/2019 2:00 PM CDT Respiratory Rate 97% 09/07/2019 2:03 PM CDT Oxygen Saturation - - Inhaled Oxygen Concentration 108.9 kg (240 lb) 09/07/2019 2:00 PM CDT Weight 177.8 cm (5' 10") 09/07/2019 2:00 PM CDT Height 34.44 09/07/2019 2:00 PM CDT Body Mass Index documented in this encounter Patient Instructions * Patient Instructions* Afia Montero PA - 09/07/2019 2:00 PM CDT At home care: -Take OTC Mucinex DM or Robitussin DM as needed -Increase water intake -Take over the counter vitamin C/multivitamin with vitamin C -Take Tylenol as needed, avoid nsaids -REST -Wash hands often -Cover mouth when coughing -Wear mask with in the same room/car as others -Gargle with warm salt water as needed -Drink warm liquids as needed. -Throat lozenges as needed -Quarantine until your COVID results are back -Stay in your own bedroom and use a separate bathroom -Keep at least 6 feet from you and others -Avoid sharing personal household items, dishes, glasses, cups, towels -Clean high traffic/touch areas daily. These include but not limited to: doorkno bs, refrigerator/cabinet handles, phones, keyboards, tablets, light switches. -Monitor your symptoms. Take your temperature 2 times daily. -Follow-up with PCP as needed, if no improvement. -Monitor your symptoms. Go to the ED if worsening symptoms: chest pain, difficul ty breathing, coughing up blood, weakness, dizziness, passing out, AMS. documented in this encounter Progress Notes * Ani Castillo MA - 09/07/2019 2:00 PM CDT Doyle Nunez is a 73 year old male Chief Complaint Patient presents with Chills All symptoms started Gaby night. Fever Body Aches Headache Vitals: 09/07/19 1400 09/07/19 1403 BP: (!) 158/78 121/79 Pulse: 86 Resp: 22 Temp: 37.4 C (99.4 F) SpO2: 96% Weight: 240 lb (108.9 kg) Height: 5' 10" (1.778 m) [address] [facility] All Vitals taken, allergies and all medications reviewed, fall risk assessed. Pa in level 0. Ani Castillo MA Patient educated on plan of care for visit, swabbing technique, risks and benefi ts of test and length of time to receive results. Verbal consent obtained to per form test. CDC Fact Sheet for Patients nCoV Diagnostic Panel dated 05/28/2019 pro vided. covid test run. * Afia Montero PA - 09/07/2019 2:00 PM CDT Cc: Chief Complaint Patient presents with Chills All symptoms started Gaby night. Fever Body Aches Headache Doyle Nunez is a 73 year old male. Patient presents with URI symptoms that began 2 days ago. Travel: no. COVID19 ex posure? No PCP- Dr. Young Leavitt in [place], [place] URI Presenting symptoms: fatigue and fever (tmax: 100.5) Presenting symptoms: no congestion, no cough, no ear pain, no facial pain, no rh inorrhea and no sore throat Severity: Mild Duration: 2 days Timing: Intermittent Progression: Unchanged Chronicity: New Worsened by: Nothing Ineffective treatments: None tried Associated symptoms: headaches (comes and goes) and myalgias (feels a little ach y) Associated symptoms: no arthralgias, no neck pain, no sinus pain, no sneezing, n o swollen glands and no wheezing Risk factors: being elderly, chronic cardiac disease (HTN) and diabetes mellitus Risk factors: no chronic kidney disease, no chronic respiratory disease, no immu nosuppression, no recent illness, no recent travel and no sick contacts Allergies Doyle has No Known Allergies. Medications Outpatient Medications Prior to Visit Medication Sig Dispense Refill amLODIPine 5 mg tablet aspirin 81 mg EC tablet Take 81 mg by mouth. b mumtbnj-D-vpndw acid 1 mg capsule Take 1 capsule by mouth. Calcium Citrate-Vitamin D3 315-200 mg-unit Tab Take 1 tablet by mouth. Insulin Asp Prt-Insulin Aspart (NOVOLOG MIX 70-30) 100 unit/mL (70-30) injec tion INJ 45 UNITS SQ QAM AND 48 UNITS QPM losartan potassium (LOSARTAN ORAL) metFORMIN 500 mg tablet nitroglycerin 0.[address] 0.4 mg under the tongue. simvastatin 20 mg tablet 20 mg. triamcinolone acetonide 0.1 % cream Apply to area(s). vitamin a 10,000 unit capsule Take 10,000 Units by mouth. vitamin C with [place] hips 1,000 mg tablet Take 1,000 mg by mouth. No facility-administered medications prior to visit. Histories Past Medical History: Diagnosis Date Diabetes Hyperlipidemia Hypertension Psoriasis History reviewed. No pertinent surgical history. Social History Socioeconomic History Marital status: Spouse name: Not on file Number of children: Not on file Years of education: Not on file Highest education level: Not on file Occupational History Not on file Social Needs Financial resource strain: Not on file Food insecurity: Worry: Not on file Inability: Not on file Transportation needs: Medical: Not on file Non-medical: Not on file Tobacco Use Smoking status: Never Smoker Smokeless tobacco: Never Used Substance and Sexual Activity Alcohol use: Not on file Drug use: Not on file Sexual activity: Not on file Lifestyle Physical activity: Days per week: Not on file Minutes per session: Not on file Stress: Not on file Relationships Social connections: Talks on phone: Not on file Gets together: Not on file Attends scientology service: Not on file Active member of club or organization: Not on file Attends meetings of clubs or organizations: Not on file Relationship status: Not on file Intimate partner violence: Fear of current or ex partner: Not on file Emotionally abused: Not on file Physically abused: Not on file Forced sexual activity: Not on file Other Topics Concern Not on file Social History Narrative Lives at home with Family History Problem Relation Age of Onset No Significant Medical Problems Mother [place] (myocardial infarction) Father Review of Systems Constitutional: Positive for fatigue and fever (tmax: 100.5). Negative for activ ity change, appetite change, chills and diaphoresis. HENT: Negative for congestion, ear discharge, ear pain, facial swelling, postnas al drip, rhinorrhea, sinus pressure, sinus pain, sneezing, sore throat, trouble swallowing and voice change. Eyes: Negative for pain, discharge, redness and itching. Respiratory: Negative for cough, chest tightness, shortness of breath and wheezi ng. Cardiovascular: Negative for chest pain, palpitations and leg swelling. Gastrointestinal: Negative for abdominal pain, constipation, diarrhea, nausea an d vomiting. Genitourinary: Negative for dysuria, urgency, frequency and flank pain. Musculoskeletal: Positive for myalgias (feels a little achy). Negative for arthr algias, back pain, gait problem, joint swelling, neck pain and neck stiffness. Skin: Negative for color change and rash. Neurological: Positive for headaches (comes and goes). Negative for dizziness, s yncope, weakness and light-headedness. Psychiatric/Behavioral: Negative for confusion. Vital Signs BP 121/79 | Pulse 86 | Temp 37.4 C (99.4 F) | Resp 22 | Ht 5' 10" (1.778 m) | Wt 240 lb (108.9 kg) | SpO2 97% | BMI 34.44 kg/m Physical Exam Constitutional: He is oriented to person, place, and time. He appears well-devel oped and well-nourished. No distress. HENT: Head: Normocephalic and atraumatic. Right Ear: External ear normal. Left Ear: External ear normal. Nose: Nose normal. Eyes: Conjunctivae are normal. Right eye exhibits no discharge. Left eye exhibit s no discharge. Neck: Normal range of motion. Cardiovascular: Normal rate, regular rhythm and normal heart sounds. Pulmonary/Chest: Effort normal and breath sounds normal. No respiratory distress . He has no wheezes. He has no rales. Abdominal: Soft. Bowel sounds are normal. He exhibits no distension. There is no tenderness. Musculoskeletal: Normal range of motion. He exhibits no edema. Neurological: He is alert and oriented to person, place, and time. Skin: Skin is warm and dry. No rash noted. He is not diaphoretic. Psychiatric: He has a normal mood and affect. His behavior is normal. Nursing note and vitals reviewed. Assessment/Plan Viral illness (primary encounter diagnosis) Plan: COVID-19 (PCR MOLECULAR TESTING) Temp < 100.4, well appearing, non-toxic, NAD. HR < 100, lungs CTAB. COVID-19 TESTING ORDERED Educated on the following at home care: -Take OTC Mucinex DM or Robitussin DM as needed -Increase water intake -Take over the counter vitamin C/multivitamin with vitamin C -Take Tylenol as needed, avoid nsaids -REST -Wash hands often -Cover mouth when coughing -Wear mask with in the same room/car as others -Gargle with warm salt water as needed -Drink warm liquids as needed. -Throat lozenges as needed -Quarantine until your COVID results are back -Stay in your own bedroom and use a separate bathroom -Keep at least 6 feet from you and others -Avoid sharing personal household items, dishes, glasses, cups, towels -Clean high traffic/touch areas daily. These include but not limited to: doorkno bs, refrigerator/cabinet handles, phones, keyboards, tablets, light switches. -Monitor your symptoms. Take your temperature 2 times daily. -Follow-up with PCP as needed, if no improvement. -Monitor your symptoms. Go to the ED if worsening symptoms: chest pain, difficul ty breathing, coughing up blood, weakness, dizziness, passing out, AMS. -CDC handout provided Pt ed/precautions given in detail regarding conditions/medicaitons. Er precautio ns given. Pt reports understanding and agrees. rtc if s/s worsen or do not improve; Plan of care, desired health behaviors, goals, Ddx, & any prescribed or OTC medications discussed with patient. Education resources & self management tools provided and reviewed with AVS. Patient/guardian/family verbalized understanding & agrees to plan of care. Barriers to care: NONE Ability to manage care: Good This visit did not involve counseling and coordination that comprised more than 50% of the visit time. documented in this encounter Plan of Treatment Order Schedule Name Type Priority Associated Diag noses Ordered: 09/07/2019 COVID-19 (PCR MOLECULAR LAB Routine Viral illness TESTING) Health Maintenance Due Date Last Done Comments HEPATITIS C (HCV) SCREEN 1945 DTaP,Tdap,and Td Vaccines 1956 (1 - Tdap) Depression Screening 1957 COLONOSCOPY 11/16/1995 Zoster Recombinant 11/16/1995 Vaccine (SHINGRIX) (1 of 2) Medicare Wellness Visit 2010 PNEUMOCOCCAL VACCINES 65+ 2010 (1 of 2 - PCV13) INFLUENZA VACCINE (Season 11/14/2019 Ended) documented as of this encounter Results Not on filedocumented in this encounter Visit Diagnoses Diagnosis Viral illness - Primary Unspecified viral infection, in conditi ons classified elsewhere and of unspecified site documented in this encounter Insurance Type Payer Benefit Subscriber ID Effective Phone Address Plan / Dates Group Medicare MEDICARE MEDICARE xxxxxxxxxxx 2010-P [phone] [address] [place] A & B resent [id number] [place] [id number] Guarantor Name Account Relation to Date of Phone Jmaiein g Address Type Patient Doyle Nunez Personal/F Self 1945 [id number] ([place]) [place] [address] documented as of this encounter
--- OUTSIDE RECORDS SUMMARY | 2019-10-13 03:45 | XMS REPORT | Clinical Summary ---
Author Author [facility] Address Unknown Phone Unavailable Care Team Providers Care Lock Fitter Name Role Phone Young Allen MD PCP [...] (two) times a day. 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
--- OUTSIDE RECORDS SUMMARY | 2019-10-13 03:45 | XMS REPORT | Continuity of Care Document ---
Author Author [facility] t Organization [facility] Address [address] [place] [address] Phone Unavailable Care Team Providers Care Hand Scudder Name Role Phone NONSTAFF PCP Unavailable Breonna FULLER Attphys Unavailable Pob1, Care Clinic Acute Attphys Unavailable SHEELA VELAZQUEZ Attphys Unavailable Breonna FULLER Admphys Unavailable Payers Payer Name Policy Type Policy Number Effective Date Expiration Date S wilian Aelisna Medicare Supplement Plan [id number] 2016 00:00 :00 [facility] Medicare A & B [id number] 2010 00:00:00 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 Allergies, Adverse Reactions, Alerts This patient has [...] 11:16:00 Yes 100 Twice A Day [facility] aspirin (ECOTRIN) 81 MG enteric [...] times a day. Al crawford vitamin A 60177 UNIT capsule 2017-12-08 11:05:22 Yes [id number] QD Take 10,000 Units by mouth daily. [...] mg nightly. Al Torres Aspirin Aspirin Yes [facility] Insuln Asp Prt/Insulin Aspart (Novolog M ix 70-30 Flexpen Syrn) 100 Unit/1 Ml INSULN.PEN Insuln Asp Prt/Insulin Aspart (Novolog M ix 70-30 Flexpen Syrn) 100 Unit/1 Ml INSULN.PEN Yes 45 Daily [facility] Insuln Asp Prt/Insulin Aspart (Novolog M ix 70-30 Flexpen Syrn) 100 Unit/1 Ml INSULN.PEN Insuln Asp Prt/Insulin Aspart (Novolog M ix 70-30 Flexpen Syrn) 100 Unit/1 Ml INSULN.PEN Yes 48 Bedtime [facility] Losartan Potassium Losartan Potassium Yes 50 Be dtime [facility] Metformin Hcl Metformin Hcl Yes 500 Twice A Day [facility] Simvastatin Simvastatin Yes 20 Today At 9:00PM [facility] Triamcinolone Acet (Triamcinolone Acetonide) 15 Gm CR Triamcinolone Acet (Triamcinolone Acetonide) 15 Gm CR Yes Naomi neida [facility] Ciprofloxacin Hcl (Cipro) 500 Mg TABLET Ciprofloxacin Hcl (C ipro) 500 Mg TABLET 2019-09-16 00:00:00 No 500 Every 12 Hours [facility] Clindamycin Hcl Clindamycin Hcl 2019-09-16 00:00:[address] [facility] Aspirin (Aspir 81) 81 Mg TABLET. Aspirin (Aspir 81) 81 Mg ÁNGEL FELTON 2017-06-14 00:00:00 No 81 Daily [facility] Calcium Citrate/Vitamin D3 (Calcium Citrate - Vit D Ca plet) 1 Each TABLET Calcium Citrate/Vitamin D3 (Calcium Citrate - Vit D Caplet) 1 Each TABLET 2017-06-14 00:00:00 No 1 Daily [facility] Clopidogrel Bisulfate (Clopidogrel) 75 Mg TABLET Clopi dogrel Bisulfate (Clopidogrel) 75 Mg TABLET 2017-06-14 00:00:00 No 75 Daily [facility] Ubidecarenone (Coq-10) 100 Mg CAPSULE Ubidecarenone (Coq-10) 100 Mg CAPSULE 2017-06-14 00:00:00 No 200 Daily [facility] Vitamin A Vitamin A 2017-06-14 00:00:00 No 1000 Daily [facility] Vitamin B Complex Vitamin B Complex 2017-06-14 00:00:00 No 1 Daily [facility] Vital Signs Vital Name Observation Time Observation Value Comments Source Body Temperature 2019-09-16 12:22:00 98.0 [degF] [facility] BMI (Body Mass Index) 2019-09-16 00:32:00 34.4 kg/m2 [facility] Weight 2019-09-12 16:04:00 240 [lb_av] [facility] Procedures Procedure Date / Time Performed Performing Clinician Ryan e MRI non-joint region of extremity lower wo contrast 2019-09-13 0 0:00:00 [facility] Plan of Care Planned Activity Planned Date Details Comments Source Future Scheduled Test 2019-10-14 00:00:00 INFLUENZA VACCINE [code = INFLUENZA VACCINE] Al Trores Future Scheduled Test 2014-07-08 00:00:00 SHINGLES VACCINES (#2) [code = SHINGLES VACCINES (#2)] [facility] Scheduled Test 2010 00:00:00 65+ PNEUMOCOCCAL V ACCINE (2 of 2 - PPSV23) [code = 65+ PNEUMOCOCCAL VACCINE (2 of 2 - PPSV23)] [facility] Scheduled Test 1995-11-16 00:00:00 COLONOSCOPY SCREEN ING [code = COLONOSCOPY SCREENING] [facility] Instructions Diabetes and Diet [facility] Instructions Hypertension [facility] Instructions Wound Care (General) [facility] Encounters Start Date/Time End Date/Time Encounter Type Admission Type [facility] Care Department Encounter ID Source 2019-09-12 17:07:00 2019-09-12 17:07:00 Admitted Inpatient 1 EDGAR FULLER [facility] [id number] [facility] 2019-09-07 13:46:24 2019-09-07 14:06:24 Urgent Care Pob1, Acute Care Clinic [facility] Professional [facility] Building [facility] [id number] Results Test Description Test Time Test Comments Results Result Comments Source Capillary blood glucose measurement by glucometer (mas s/volume) 2019-09-16 12:03:00 Test Item Bedside Glucose (test code = 58844-3) 150 70-120 Meter ID: [id number] leukocytes automated count (number/volume)2019-09-16 05:40:00* Test Item Value Reference Range Interpretation Comments White Blood Count (test code = 6690-2) 8.03 4.8-10.8 [facility] erythrocytes automated count (number/volume)2019-09-16 05:40:00* Test Item Value Reference Range Interpretation Comments Red Blood Count (test code = 789-8) 3.92 4.3-5.7 [facility] CenterBlood hemoglobin measurement (moles/volume)2019-09-16 05:40:00* Test Item Value Reference Range Interpretation Comments Hemoglobin (test code = 48575-7) 11.2 14.0-18.0 [facility] CenterAutomated blood hematocrit (volume fraction)2019-09-16 05:40:00* Test Item Value Reference Range Interpretation Comments Hematocrit (test code = 4544-3) 33.7 38.2-49.6 [facility] CenterAutomated erythrocyte mean corpuscular jlucqy9716-15-33 05:40:00* Test Item Value Reference Range Interpretation Comments Mean Corpuscular Volume (test code = 787-2) 86.0 81-99 [facility] CenterAutomated erythrocyte mean corpuscular hemoglobin (mass per erythrocyte)2019-09-16 05:40:00* Test Item Value Reference Range Interpretation Comments Mean Corpuscular Hemoglobin (test code = 785-6) 28.6 28-32 [facility] CenterAutbetsy john[facility] erythrocyte mean corpuscular hemoglobin concentration measurement (mass/volume)2019-09-16 05:40:00* Test Item Value Reference Range Interpretation Comments Mean Corpuscular Hemoglobin Concent (test code = 786-4) 33.2 31-35 [facility] CenterRDW ArlFf-Wkk5315-88-04 05:40:00* Test Item Value Reference Range Interpretation Comments Red Cell Distribution Width (test code = 44949-4) 13.2 11.7 -14.4 [facility] CenterAutcape fear valley bl[facility] hospitaled blood platelet count (count/volume)2019-09-16 05:40:00* Test Item Value Reference Range Interpretation Comments Platelet Count (test code = 777-3) 341 140-360 [facility] CenterAutomated blood segmented neutrophil count as percentage of total jxitrudsuo9057-52-56 05:40:00* Test Item Value Reference Range Interpretation Comments Neutrophils (%) (Auto) (test code = 33951-0) 67.6 38.7-80.0 [facility] CenterAutomated blood lymphocyte count as percentage ot total mfcroxstdy6022-31-01 05:40:00* Test Item Value Reference Range Interpretation Comments Lymphocytes (%) (Auto) (test code = 736-9) 18.1 18.0-39.1 [facility] CenterAutomated blood monocyte count as percentage of total lwtjhcobfw0099-75-48 05:40:00* Test Item Value Reference Range Interpretation Comments Monocytes (%) (Auto) (test code = 5905-5) 9.5 4.4-11.3 [facility] CenterAutomated blood eosinophil count as percentage of total fdmrqbesja2672-55-24 05:40:00* Test Item Value Reference Range Interpretation Comments Eosinophils (%) (Auto) (test code = 713-8) 3.7 0.0-6.0 [facility] CenterAutomated blood basophil count as percentage of total gygywumfpb5648-02-28 05:40:00* Test Item Value Reference Range Interpretation Comments Basophils (%) (Auto) (test code = 706-2) 0.4 0.0-1.0 [facility] CenterFluoroscopic procedure less than one hour mhahwzuw9024-41-84 05:40:00* Test Item Value Reference Range Interpretation Comments IM GRANULOCYTES % (test code = IM GRANULOCYTES %) 0.7 0.0- 1.0 [facility] CenterAutomated blood neutrophil count 2019-09-16 05:40:00* Test Item Value Reference Range Interpretation Comments Neutrophils # (Auto) (test code = 751-8) 5.4 2.1-6.9 [facility] CenterBlood lymphocytes count (number/volume) 2019-09-16 05:40:00* Test Item Value Reference Range Interpretation Comments Lymphocytes # (Auto) (test code = 85783-3) 1.5 1.0-3.2 [facility] CenterBlood monocytes automated count (number/volume)2019-09-16 05:40:00* Test Item Value Reference Range Interpretation Comments Monocytes # (Auto) (test code = 742-7) 0.8 0.2-0.8 [facility] CenterAutomated blood eosinophil count 2019-09-16 05:40:00* Test Item Value Reference Range Interpretation Comments Eosinophils # (Auto) (test code = 711-2) 0.3 0.0-0.4 [facility] CenterAutomated blood basophil count (count/volume)2019-09-16 05:40:00* Test Item Value Reference Range Interpretation Comments Basophils # (Auto) (test code = 704-7) 0.0 0.0-0.1 [facility] CenterFluoroscopic procedure less than one hour vwjaoayh6064-68-74 05:40:00* Test Item Value Reference Range Interpretation Comments Absolute Immature Granulocyte (auto (ramo t code = Absolute Immature Granulocyte (auto) 0.06 0-0.1 [facility] plasma sodium measurement (moles/volume)2019-09-16 05:40:00* Test Item Value Reference Range Interpretation Comments Sodium Level (test code = 2951-2) 134 136-145 [facility] Hospitalerum or plasma potassium measurement (moles/volume)2019-09-16 05:40:00* Test Item Value Reference Range Interpretation Comments Potassium Level (test code = 2823-3) 4.1 3.5-5.1 [facility] Hospitalerum or plasma chloride measurement (moles/volume)2019-09-16 05:40:00* Test Item Value Reference Range Interpretation Comments Chloride Level (test code = 2075-0) 102 98-107 [facility] Hospitalerum or plasma carbon dioxide, total measurement (moles/volume)2019-09-16 05:40:00* Test Item Value Reference Range Interpretation Comments Carbon Dioxide Level (test code = 2028-9) 23 22-29 [facility] Hospitalerum or plasma anion cfz8542-80-95 05:40:00* Test Item Value Reference Range Interpretation Comments Anion Gap (test code = 17330-7) 13.1 8-16 [facility] Hospitalerum or plasma urea nitrogen measurement (mass/volume)2019-09-16 05:40:00* Test Item Value Reference Range Interpretation Comments Blood Urea Nitrogen (test code = 3094-0) 16 7-26 [facility] Hospitalerum or plasma creatinine measurement (mass/volume)2019-09-16 05:40:00* Test Item Value Reference Range Interpretation Comments Creatinine (test code = 2160-0) 1.00 0.72-1.25 [facility] Hospitalerum or plasma urea nitrogen/creatinine mass llzhq5027-41-61 05:40:00* Test Item Value Reference Range Interpretation Comments BUN/Creatinine Ratio (test code = 3097-3) 16 6-25 [facility] CenterEstimated glomerular filtration rate (GFR) pwanjsuwnrbbo1243-93-57 05:40:00* Test Item Value Reference Range Interpretation Comments Estimat Glomerular Filtration Rate (test code = 465682374) > 60 >60 Ranges were taken from the National Kidney Disease Education Program and the [employer] [facility] [employer] [employer] literature.Reference ranges:60 or greater: Nbgrck29-73 ( for 3 consecutive months): Chronic kidney disease 15 or less: Kidney failureWilson N. Jones Regional Medical CenterGlucose ijkwxqeymhc1901-16-56 05:40:00* Test Item Value Reference Range Interpretation Comments Glucose Level (test code = DSX9159) 140 74-118 [facility] Hospitalerum or plasma calcium measurement (mass/volume)2019-09-16 05:40:00* Test Item Value Reference Range Interpretation Comments Calcium Level (test code = 67754-1) 8.6 8.4-10.2 [facility] CenterFluoroscopic procedure less than one hour ebtslrne9549-41-56 05:30:00* Test Item Value Reference Range Interpretation Comments Hemoglobin A1c Percent (test code = Hemoglobin A1c Percent) 6.7 4.0-7.0 [facility] CenterMRI FOOT LEFT UN5401-91-17 12:29:00 [facility] [address] [place] [address] Patient Name: CAR QUINTANA MR #: [id number] : 1945 Age/Sex: 73/M Req #: [id number] Adm Physician: EDGAR FULLER MD Ordered by: MICAELA MARIEE DIVORCE MEDIATOR Report #: [id number] Location: MED/SURG2 Room/Bed: Replaced by [facility] Procedure: [id number] MRI/MRI FOOT LE FT WO Exam Date: [...] Bilirubin (test code = 1975-2) 0.4 0.2-1.2 [facility] CenterFluoroscopic procedure less than one hour skizfzal0311-43-59 05:05:00* Test Item Value Reference Range Interpretation Comments Aspartate Amino Transf (AST/SGOT) (test code = Aspartate Amino Transf (AST/SGOT)) 18 5-34 [facility] Hospitalerum or plasma alanine aminotransferase measurement (enzymatic activity/volume)2019-09-13 05:05:00* Test Item Value Reference Range Interpretation Comments Alanine Aminotransferase (ALT/SGPT) (test code = 1742-6) 20 0-55 [facility] Hospitalerum or plasma protein measurement (mass/volume)2019-09-13 05:05:00* Test Item Value Reference Range Interpretation Comments Total Protein (test code = 2885-2) 7.3 6.5-8.1 [facility] Hospitalerum or plasma albumin measurement (mass/volume)2019-09-13 05:05:00* Test Item Value Reference Range Interpretation Comments Albumin (test code = 1751-7) 2.7 3.5-5.0 [facility] CenterPlasma globulin measurement (mass/volume) 2019-09-13 05:05:00* Test Item Value Reference Range Interpretation Comments Globulin (test code = 37370-5) 4.6 2.3-3.5 [facility] Hospitalerum or plasma albumin/globulin mass qiphy3346-69-79 05:05:00* Test Item Value Reference Range Interpretation Comments Albumin/Globulin Ratio (test code = 1759-0) 0.6 0.8-2.0 [facility] Hospitalerum or plasma alkaline phosphatase measurement (enzymatic activity/volume)2019-09-13 05:05:00* Test Item Value Reference Range Interpretation Comments Alkaline Phosphatase (test code = 6768-6) 78 40-150 [facility] Hospitalerum or plasma C reactive protein measurement (mass/volume)2019-09-12 20:13:00* Test Item Value Reference Range Interpretation Comments C-Reactive Protein (test code = 1988-5) 72 0-10 Performed at: - [address] [id number] Director: Hung Massey MD, Phone: [phone] N. Jones Regional Medical CenterBlood wfzpzct8423-60-14 20:13:00* Test Item Value Reference Range Interpretation Comments Blood Culture (test code = 50371783) NO GROWTH AFTER 72 HOURS [facility] CenterFOOT LEFT APXEYGBS0077-16-08 17:00:00 [place] [address] Patient Name: CAR QUINTANA MR #: [id number] : 1945 Age/Sex: 73/M Req #: [id number] Adm Physician: EDGAR FULLER MD Ordered by: LD LOMBARDI DO Report #: [id number] Location: [facility] Room/Bed: [place] [address] Procedure: [id number] DX/FOOT LEFT COMP LETE Exam Date: 09/12/19 [...] TO: VILMA LOMBARDI DO CHEST 2 VIEWS [place] [address] Patient Name: CAR QUINTANA MR #: [id number] : 1945 Age/Sex: 71/M Req #: [id number] Adm Physician: Ordered by: SHEELA VELAZQUEZ DPM Report #: [id number] Location: OR Room/Bed: Procedure: DX/CHEST 2 VIEWS [...] VELAZQUEZ DPM PICC INSERT W OR W/O [place] [address] Patient Name: CAR QUINTANA MR #: [id number] : 1945 Age/Sex: 71/M Req #: [id number] Adm Physician: Ordered by: SHEELA VELAZQUEZ DPM Report #: [id number] Location: DX Room/Bed: Procedure: [id number] IR/PICC INSERT W OR W/O POR T [...] SHEELA VELAZQUEZ DPM CHEST XRAY LINE PLACEMENT [place] [address] Patient Name: CAR QUINTANA MR #: [id number] : 1945 Age/Sex: 71/M Req #: [id number] Adm Physician: Ordered by: SHEELA VELAZQUEZ DPM Report #: [id number] Location: DX Room/Bed: Procedure: [id number] DX/CHEST XRAY LINE PLACEMEN T Exam Date: [...] TO: SHEELA VELAZQUEZ DPM CHEST 2 VIEWS [place] [address] [place] [address] Patient Name: CAR QUINTANA MR #: [id number] : 1945 Age/Sex: 71/M Req #: [id number] Adm Physician: Ordered by: SHEELA VELAZQUEZ DPM Report #: [id number] Location: OR Room/Bed: Procedure: [id number] DX/CHEST 2 VIEWS Exam Date : 01/06/17 [...]
--- NOTE | 2019-10-18 19:04 | Operative Report ---
DATE OF PROCEDURE: 09/13/2019 SURGEON: Sohan Combs DPM PREOPERATIVE DIAGNOSIS: Gangrene left hallux. POSTOPERATIVE DIAGNOSIS: Gangrene left hallux. PROCEDURE PERFORMED: Hallux amputation of the left. MANAGER DENTAL: None. ANESTHESIA: Local MAC. HEMOSTASIS: None. ESTIMATED BLOOD LOSS: Minimal. PROCEDURE IN DETAIL: After mild sedation, the patient was brought to the operating room, placed in the operating room in supine position. Left foot was scrubbed, prepped and draped using aseptic manner following local anesthesia under MAC. It should be noted that approximately 10 mL of prior to the surgery we noted the hallux was gangrenous with odor, necrotic at this time. We discussed prior to the surgery we would amputate if the patient does agree. At this time, a 15-blade utilized the left hallux just proximal to any unhealthy tissue down the bone. Afterwards a bone cutter was utilized to this was sent to pathology for identification and remaining bone was removed with a bone rongeur so a plantar dorsal approximation could be obtained at this time. When enough bone was removed, there was ample tissue for approximation. The area was irrigated with copious amount of sterile normal saline. A 2-0 Vicryl in a simple interrupted technique was utilized to reapproximate deep tissue. 3-0 nylon was utilized to reapproximate the skin edges in the loose technique. Afterwards a dry sterile dressing skin with Xeroform, 4 x 4, Kerlix and Ryley wrap were applied to the left foot. There was a prompt capillary response in all digits of the left foot following this procedure. The patient tolerated the procedure and anesthesia well. He was transferred to the recovery room with vital signs stable. Following after postoperative monitoring the patient was discharged back to floor on all written orders. All complications and ramifications of the procedure were discussed in detail with the patient . All the patient's questions were answered for the surgery. Sohan Combs DPM CCC/MODL /[id number]
== END 2019-09-16 13:55 | disposition home or self-care (01) | DRG 854 ==
LOC: ER 16:58 → ERHOLD 17:07 → MED/SURG2 17:40
PROVIDERS: ADMIT Internal Medicine; ATTEND Internal Medicine
PROC: 0Y6Q0Z0 Detachment at Left 1st Toe, Complete, Open Approach (ICD-10-PCS; principal; 2019-09-13)
DX: A41.9 Sepsis, unspecified organism (principal); M86.8X7 Other osteomyelitis, ankle and foot; E87.1 Hypo-osmolality and hyponatremia; N17.9 Acute kidney failure, unspecified; E11.52 Type 2 diabetes mellitus with diabetic peripheral angiopathy with gangrene; I96 Gangrene, not elsewhere classified; E11.69 Type 2 diabetes mellitus with other specified complication; Z79.4 Long term (current) use of insulin; I10 Essential (primary) hypertension; E78.00 Pure hypercholesterolemia, unspecified; E86.0 Dehydration; E11.40 Type 2 diabetes mellitus with diabetic neuropathy, unspecified; Z11.59 Encounter for screening for other viral diseases
CPT/HCPCS: 36415; 80048; 80053; 82948; 83036; 85025; 86140; 87040; 88304; 88305; 88311; 99251; 99284; J1644; J1815; J2250; J2543; J3010; J3370; J7030; J7050; U0002